=== PATIENT | female | born 1995 | race Caucasian/White ===

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

== ENCOUNTER → 2017-02-05 | Outpatient (REF) | payer OTHER ==
[~2017-02-05] MED LIST: ALLE180T33 PO; BREO1INH INH; CIPR500T89 PO; CIPR750T2 PO; DESM0.2T; FLAG500T PO; PROZ20CA11; PYRI200T5 PO; SING10TA32 PO; VITA2000; ZOFR4TAB3 PO
== END ==
LOC: M LAB REF 16:31
PROVIDERS: ATTEND Physician Assistant
DX: N39.0 Urinary tract infection, site not specified (principal)

== ENCOUNTER → 2017-02-06 | Outpatient (CLI) | payer OTHER ==
--- NOTE | 2017-02-07 08:42 | ECGEPIP ---
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
== END ==
LOC: M EKG 08:03
PROVIDERS: ATTEND Nurse Practitioner Family
DX: R94.31 Abnormal electrocardiogram [ECG] [EKG] (principal)

== ENCOUNTER → 2017-02-06 | Outpatient (CLI) | payer OTHER ==
[2017-02-06 09:04] LABS: BLOOD UREA NITROGEN 15 MG/DL (7-18); CREATININE FOR GFR 0.65 MG/DL (0.55-1.02)
== END ==
LOC: M LAB 07:58
PROVIDERS: ATTEND Physical Medicine & Rehabilitation
DX: M47.26 Other spondylosis with radiculopathy, lumbar region (principal)

== ENCOUNTER → 2017-02-06 | Outpatient (CLI) | payer OTHER ==
[2017-02-06 09:13] LABS: CORTISOL AM 18.1 UG/DL (4.3-22.4)
== END ==
LOC: M LAB 08:01
PROVIDERS: ATTEND Nurse Practitioner Pediatrics
DX: F34.1 Dysthymic disorder (principal)

== ENCOUNTER 2017-02-12 17:54 | Emergency (ER) | payer OTHER ==
[~2017-02-12] VITALS: Ht 175.3 cm; Wt 151.8 kg
[2017-02-12] MEDS ORDERED: BREO1INH INH (18:06)
[2017-02-12] MEDS ORDERED: SING10TA32 PO (18:06)
[2017-02-12] MEDS ORDERED: PROZ20CA11 PO (18:06)
[2017-02-12] MEDS ORDERED: DESM0.2T (18:06)
[2017-02-12] MEDS ORDERED: ALLE180T33 PO (18:06)
[2017-02-12] MEDS ORDERED: CIPR750T2 PO (18:06)
[2017-02-12] MEDS ORDERED: VITA2000 (18:06)
[2017-02-12] MEDS ORDERED: ACETAMINOPHEN 325 MG TAB PO ONE (18:30)
[2017-02-12] MEDS ORDERED: PHENAZOPYRIDINE 100 MG TAB PO ONE (18:30)
[2017-02-12 18:46] LABS: BASO # 0.1 K/mm3 (0.0-0.2); BASO % 0.5 % (0.0-1.0); EOS # 0.4 K/mm3 (0.0-0.50); EOS % 3.4 % (0.0-3.0); LARGE UNSTAINED CELL # 0.1 K/mm3 (0.0-0.4); LARGE UNSTAINED CELL % 0.7 % (0.0-4.0); LYMPH # 2.3 K/mm3 (1.5-6.5); LYMPH % 17.1 % (24.0-44.0); MEAN CORPUSCULAR HEMOGLOBIN 27.6 pg (27.0-33.0); MEAN CORPUSCULAR HGB CONC 33.3 g/dl (32.0-36.5); MEAN CORPUSCULAR VOLUME 83.1 fl (80.0-96.0); MONO # 0.4 K/mm3 (0.0-0.8); NEUTROPHILS # 9.7 K/mm3 (1.8-7.7); NEUTROPHILS % 75.3 % (36.0-66.0); PLATELET COUNT, AUTOMATED 287 k/mm3 (150-450); RED CELL DISTRIBUTION WIDTH 13.9 % (11.5-14.5); WHITE BLOOD COUNT 12.9 K/mm3 (4.0-10.0)
[2017-02-12 19:14] LABS: ALBUMIN 3.7 GM/DL (3.2-5.2); ALBUMIN/GLOBULIN RATIO 0.95 (1.00-1.93); ALKALINE PHOSPHATASE 103 U/L (45-117); ALT/SGPT 29 U/L (12-78); ANION GAP 6 MEQ/L (8-16); AST/SGOT 14 U/L (15-37); BILIRUBIN,DIRECT < 0.1 MG/DL (0.0-0.2); BILIRUBIN,TOTAL 0.3 MG/DL (0.2-1.0); BLOOD UREA NITROGEN 12 MG/DL (7-18); CARBON DIOXIDE LEVEL 29 MEQ/L (21-32); CHLORIDE LEVEL 104 MEQ/L (98-107); GLUCOSE, FASTING 82 MG/DL (70-105); POTASSIUM SERUM 4.1 MEQ/L (3.5-5.1); SODIUM LEVEL 139 MEQ/L (136-145); TOTAL PROTEIN 7.6 GM/DL (6.4-8.2)
--- NOTE | 2017-02-12 20:00 | REPUSA ---
HISTORY: Abdominal pain. TECHNIQUE: Realtime sonographic images were obtained in multiple projections. FINDINGS: The liver is of uniform echo texture without evidence of mass or defect. There is no intra or extrah epatic biliary ductal dilatation. The common bile duct measures 4.4 mm. Multiple large stones filli ng entire gallbladder with thickened wall. There is no abdominal ascites. The visualized portions of abdominal aorta present no abnormalities. The visualized portions of the pancreas are unremarkable. The spleen is of uniform echo texture and does not appear enlarged. The right kidney measures 9.7 x 3.6 x 4.0 cm. The right kidney is free of hydronephrosis. IMPRESSION: Multiple large stones filling entire gallbladder with thickened gallbladder wall. Chronic cholecysti tis is suspected. Consider follow up with hepatobiliary scan. Thank you for your kind referral of this patient. We appreciate the opportunity to participate in th is patient's care.
[2017-02-12] MEDS ORDERED: PYRI1TAB5 PO (20:54)
[2017-02-12] MEDS ORDERED: CIPR-249 PO (20:54)
[2017-02-12] MEDS ORDERED: FLAG500T PO (20:54)
[2017-02-12] MEDS ORDERED: ZOFR4TAB3 PO (20:54)
[2017-02-12 21:00] VITALS: BP 132/85
[2017-02-12] MEDS ORDERED: metroNIDAZOLE (FLAGYL) 500 MG TAB PO ONE (21:00)
[2017-02-12] MEDS ORDERED: CIPROFLOXACIN 500 MG TAB PO ONE (21:00)
[2017-03-23] MEDS ORDERED: ADDE30CA3 PO (17:49)
[2017-03-23] MEDS ORDERED: CAPS0.1C2 TOP (17:49)
[2017-03-23] MEDS ORDERED: CLOTCRE3 TOP (17:49)
[2017-03-23] MEDS ORDERED: ASCO25TA PO (17:49)
[2017-03-23] MEDS ORDERED: MELO15TA4 PO (17:49)
[2017-03-23] MEDS ORDERED: ALBU17IN INH (17:49)
== END 2017-02-12 21:02 | disposition home or self-care (01) ==
LOC: M ED 18:48
DX: K80.44 Calculus of bile duct with chronic cholecystitis without obstruction (principal)

== ENCOUNTER → 2017-03-02 | Outpatient (CLI) | payer OTHER ==
[~2017-03-02] MED LIST changes: +ADDE30CA3 PO; +ALBU17IN INH; +ASCO25TA PO; +CAPS0.1C2 TOP; +CIPR-249 PO; -CIPR500T89 PO; +CLOTCRE3 TOP; +KEFL500C17 PO; +MELO15TA4 PO; -PROZ20CA11; +PROZ20CA11 PO; +PYRI1TAB5 PO; -PYRI200T5 PO
--- NOTE | 2017-03-02 18:35 | REP ---
MRI LUMBAR SPINE WITHOUT AND WITH CONTRAST: HISTORY: Spondylosis. CONTRAST: ProHance 20 mL. COMPARISON: 12/15/2016 There is no disc bulge or herniation at the L1-2 and L5-S1 levels. The nerves exit the neural foramina without compression. A diffuse disc bulge is present at the L2-3 level. There is minimal compression of the thecal sac. The L2 nerves exit the neural foramina without compression. A diffuse disc bulge is present at the L3-4 level. There is minimal compression of the thecal sac. The L3 nerves exit the neural foramina without compression. A diffuse disc bulge is present at the L4-5 level. There is minimal compression of the thecal sac. The L4 nerves exit the neural foramina without compression. The conus medullaris is normal in appearance terminating at the level of the L1-2 intervertebral disc . There is fatty infiltration of the filum terminale. Normal signal intensity is present in the lumbar intervertebral discs and vertebral bodies. IMPRESSION: 1. Diffuse disc bulges at the L2-3 through L4-5 levels with minimal thecal sac compression. 2. Fatty infiltration of filum terminale. There is no change compared to the previous study. Signed by Sukhi Ruvalcaba MD 03/02/2017 06:40 P
--- NOTE | 2017-03-02 18:38 | REP ---
MRI THORACIC SPINE WITHOUT AND WITH CONTRAST: HISTORY: Spondylosis. CONTRAST: ProHance 20 mL COMPARISON: 10/10/2016 There is no disc bulge or herniation. There is an increase in the amount of epidural fat. This extends from the T4 level inferior to T9. There is minimal effacement of the thecal sac without spinal cord compression. Facet hypertrophy is present at the T10-11 level. There is minimal effacement of the thecal sac without spinal cord compression. The T10 and remaining neural foramina are patent. The spinal cord is normal in signal intensity. Normal signal intensity is present in the thoracic vertebral bodies. IMPRESSION: 1. There is no disc bulge or herniation. 2. There is epidural lipomatosis. There is no change compared to the previous study. Signed by Sukhi Ruvalcaba MD 03/02/2017 06:41 P
== END ==
LOC: M RAD 15:15
PROVIDERS: ATTEND Physical Medicine & Rehabilitation
DX: M54.6 Pain in thoracic spine (principal)

== ENCOUNTER 2017-03-30 10:02 | Day surgery (SDC) | payer OTHER ==
[~2017-03-30] VITALS: Ht 175.3 cm; Wt 150.6 kg
[~2017-03-30 10:02] MED LIST changes: -KEFL500C17 PO
[2017-03-30] MEDS ORDERED: LR 1,000 ML IV ONE (10:15)
[2017-03-30 10:32] LABS: CONTROL LINE UCG INT CTR LINE PRESENT
[2017-03-30] MEDS ORDERED: fentaNYL 250 MCG/5 ML INJECTION (J3010) As Ordered ONE (11:16)
[2017-03-30] MEDS ORDERED: LIDOCAINE 2% INJ 100 MG/5 ML SDV (FOR ANES.) As Ordered ONE (11:16)
[2017-03-30] MEDS ORDERED: PROPOFOL 200 MG/20 ML VIAL As Ordered ONE ×2 (11:16→12:20)
[2017-03-30] MEDS ORDERED: ROCURONIUM BROMIDE 50 MG/5 ML VIAL/SYRINGE As Ordered ONE ×2 (11:16→12:20)
[2017-03-30] MEDS ORDERED: KETOROLAC 60 MG/2 ML VIAL (J1885) As Ordered ONE (11:16)
[2017-03-30] MEDS ORDERED: ONDANSETRON 4MG/2ML VIAL (J2405) As Ordered ONE (11:16)
[2017-03-30] MEDS ORDERED: MIDAZOLAM INJ 2 MG/2 ML VIAL (J2250) As Ordered ONE (11:16)
[2017-03-30] MEDS ORDERED: dexameTHASONE 4 MG/ML 1ML VIAL (J1100) As Ordered ONE (11:16)
[2017-03-30] MEDS ORDERED: BUPIVACAINE/EPIN 0.25% 30 ML VIAL As Ordered ONE (11:24)
[2017-03-30] MEDS ORDERED: NEOSTIGMINE 1MG/ML 5 ML SYRINGE (J2710) As Ordered ONE ×2 (12:49→13:33)
[2017-03-30] MEDS ORDERED: GLYCOPYRROLATE INJ 0.2 MG/ML 2 ML VIAL As Ordered ONE (12:49)
[2017-03-30] MEDS ORDERED: fentaNYL 100 MCG/2 ML INJECTION (J3010) IV PRN (13:30)
[2017-03-30] MEDS ORDERED: LR 1,000 ML IV SCH (13:30)
[2017-03-30] MEDS ORDERED: ONDANSETRON 4MG/2ML VIAL (J2405) IV PRN (13:30)
[2017-03-30] MEDS ORDERED: PERCOCET 5MG/325MG TAB PO PRN (13:30)
[2017-03-30] MEDS ORDERED: METOCLOPRAMIDE INJ 10MG/2ML VIAL (J2765) IV PRN (13:30)
[2017-03-30] MEDS ORDERED: NORCO, ANEXSIA 5/325MG TABLET (HYDROcodone/ACETAMINOPHEN) PO PRN (13:30)
[2017-03-30] MEDS: MORPHINE 2 MG/ML 1ML SYRINGE IV PRN ×2 (13:46→13:52)
[2017-03-30 16:05] VITALS: BP 122/60
--- NOTE | 2017-03-31 08:14 | RO ---
DATE OF PROCEDURE: 03/30/2017 PREOPERATIVE DIAGNOSIS: Symptomatic cholelithiasis. POSTOPERATIVE DIAGNOSIS: Symptomatic cholelithiasis. PROCEDURE: Laparoscopic cholecystectomy. SURGEON: Dr. Bennie Rose. DISPLAY DESIGNER OUTSIDE: Mery Thomas. ANESTHESIA: General. ESTIMATED BLOOD LOSS: 5. COMPLICATIONS: None. INDICATION FOR PROCEDURE: The patient is a 21-year-old female who presents with persistent right upper quadrant abdominal pain found to have symptomatic cholelithiasis. Recommendations to proceed with laparoscopic, possible open cholecystectomy. Risks and benefits of procedure not limited but including bleeding, infection, hernia formation, damage to surrounding structures, need for further surgery were discussed in detail with the patient. Informed consent was obtained and procedure was planned. PROCEDURE: The patient was brought back to operating room two. After sufficient sedation, the abdomen was sterilely prepped and draped. Next time out was done to confirm proper patient and proper procedure. Following that, an incision made in left upper quadrant at Hugo's point. Veress needle was inserted and the abdomen was insufflated to 15 mmHg. Next a 5 mm OptiView port was used to gain access to the abdomen superior to the umbilicus. Once the abdomen was entered, a Veress needle site was examined. There were no signs of injury. Veress needle was removed. Next the 11 mm port was placed subxiphoid, two 5 mm ports in the right upper quadrant. Fundus of the gallbladder was hiding underneath some scarred omentum. This was carefully dissected free from the liver bed and from the fundus of the gallbladder. Once the fundus of the gallbladder was reached, the omentum was carefully dissected free all the way through the body of the gallbladder. Once the neck of the gallbladder was reached, the cystic duct and cystic artery were dissected free using a combination of blunt and sharp dissection. Once they were both clearly identified, they were both doubly clamped and cut. The gallbladder was then removed from the gallbladder fossa using electrocautery and brought out through the subxiphoid port site in a 10 mm EndoCatch bag. The abdomen was then desufflated. Skin incisions were closed with #4-0 Vicryl subcuticular sutures. The abdomen was cleaned and dried. Steri-Strips, 4 x 4 and tape were applied thus ending procedure.
== END 2017-03-30 16:20 | disposition home or self-care (01) ==
LOC: M SDC 10:02
PROVIDERS: ATTEND Surgery
DX: K80.10 Calculus of gallbladder with chronic cholecystitis without obstruction (principal); F41.9 Anxiety disorder, unspecified; J45.909 Unspecified asthma, uncomplicated; F32.9 Major depressive disorder, single episode, unspecified; F90.9 Attention-deficit hyperactivity disorder, unspecified type; R29.898 Other symptoms and signs involving the musculoskeletal system; M51.9 Unspecified thoracic, thoracolumbar and lumbosacral intervertebral disc disorder; Z88.2 Allergy status to sulfonamides; Z79.899 Other long term (current) drug therapy

== ENCOUNTER 2017-04-27 13:09 | Emergency (ER) | payer OTHER ==
[~2017-04-27] VITALS: Ht 175.3 cm; Wt 156.1 kg
[2017-04-27] MEDS ORDERED: KEFL500C17 PO (15:38)
[2017-04-27] MEDS ORDERED: CEPHALEXIN 500 MG CAP PO ONE (15:45)
[2017-04-27 15:50] VITALS: BP 123/75
== END 2017-04-27 15:51 | disposition home or self-care (01) ==
LOC: M ED 13:09
DX: T81.31XA Disruption of external operation (surgical) wound, not elsewhere classified, initial encounter (principal)

== ENCOUNTER → 2017-07-31 | Outpatient (CLI) | payer OTHER ==
[~2017-07-31] MED LIST changes: +KEFL500C17 PO
[2017-07-31 19:46] LABS: BASO # 0.1 10^3/uL (0.0-0.2); BASO % 0.5 % (0.0-1.0); EOS # 0.2 10^3/uL (0.0-0.50); EOS % 1.7 % (0.0-3.0); IMMATURE GRANULOCYTE % 0.4 % (0-0); LYMPH # 3.1 10^3/uL (1.5-6.5); LYMPH % 30.5 % (24.0-44.0); MEAN CORPUSCULAR HEMOGLOBIN 26.3 pg (27.0-33.0); MEAN CORPUSCULAR VOLUME 82.3 fl (80.0-96.0); MONO # 0.6 10^3/uL (0.0-0.8); MONO % 5.7 % (0.0-5.0); NEUTROPHILS # 6.2 10^3/uL (1.8-7.7); NEUTROPHILS % 61.2 % (36.0-66.0); PLATELET COUNT, AUTOMATED 343 10^3/uL (150-450); RED CELL DISTRIBUTION WIDTH 14.5 % (11.5-14.5); WHITE BLOOD COUNT 10.1 10^3/uL (4.0-10.0)
[2017-07-31 20:13] LABS: ALBUMIN 3.8 GM/DL (3.2-5.2); ALBUMIN/GLOBULIN RATIO 0.95 (1.00-1.93); ALKALINE PHOSPHATASE 93 U/L (45-117); ALT/SGPT 24 U/L (12-78); ANION GAP 9 MEQ/L (8-16); AST/SGOT 9 U/L (7-37); BILIRUBIN,TOTAL 0.2 MG/DL (0.2-1.0); BLOOD UREA NITROGEN 12 MG/DL (7-18); CALCIUM LEVEL 8.8 MG/DL (8.5-10.1); CARBON DIOXIDE LEVEL 27 MEQ/L (21-32); CHLORIDE LEVEL 107 MEQ/L (98-107); CREATININE FOR GFR 0.63 MG/DL (0.55-1.02); FREE T4 0.93 NG/DL (0.78-1.33); GLUCOSE, FASTING 81 MG/DL (70-105); POTASSIUM SERUM 3.9 MEQ/L (3.5-5.1); SODIUM LEVEL 143 MEQ/L (136-145); TOTAL PROTEIN 7.8 GM/DL (6.4-8.2)
== END ==
LOC: M WUC 17:10
PROVIDERS: ATTEND Physician Assistant
DX: R30.0 Dysuria (principal)

== ENCOUNTER → 2017-07-31 | Outpatient (REF) | payer OTHER | LOC: M LAB REF 19:15 | PROVIDERS: ATTEND Physician Assistant | DX: R30.0 Dysuria (principal) ==

== ENCOUNTER 2017-08-04 14:57 | Emergency (ER) | payer OTHER ==
[~2017-08-04] VITALS: Ht 175.3 cm; Wt 150.0 kg
[2017-08-04 17:02] LABS: CONTROL LINE UCG INT CTR LINE PRESENT
[2017-08-04] MEDS ORDERED: CIPROFLOXACIN 500 MG TAB PO ONE (17:15)
[2017-08-04] MEDS ORDERED: CIPR-249 PO (17:16)
[2017-08-04 17:39] VITALS: BP 113/69
== END 2017-08-04 17:41 | disposition home or self-care (01) ==
LOC: M ED 14:57
DX: N30.90 Cystitis, unspecified without hematuria (principal); J45.909 Unspecified asthma, uncomplicated; F41.9 Anxiety disorder, unspecified; Z79.899 Other long term (current) drug therapy; Z79.51 Long term (current) use of inhaled steroids; Z88.1 Allergy status to other antibiotic agents; Z88.2 Allergy status to sulfonamides; L23.1 Allergic contact dermatitis due to adhesives

== ENCOUNTER → 2017-08-10 | Outpatient (REF) | payer OTHER, MEDICAID ==
[2017-08-11 13:58] LABS: CALCIUM OXALATE CRYSTALS LARGE
== END ==
LOC: M LAB REF 13:32
PROVIDERS: ATTEND Nurse Practitioner Adult Health
DX: N39.0 Urinary tract infection, site not specified (principal)

== ENCOUNTER → 2017-09-08 | Outpatient (CLI) | payer OTHER ==
[~2017-09-08] MED LIST changes: -ADDE30CA3 PO; -ALBU17IN INH; -ALLE180T33 PO; -ASCO25TA PO; -BREO1INH INH; -CAPS0.1C2 TOP; -CIPR-249 PO; -CIPR750T2 PO; -CLOTCRE3 TOP; -DESM0.2T; -FLAG500T PO; +ISOVUE-370 76% 100ML VIAL (Q9967) As Ordered; -KEFL500C17 PO; -MELO15TA4 PO; -PROZ20CA11 PO; -PYRI1TAB5 PO; -SING10TA32 PO; -VITA2000; -ZOFR4TAB3 PO
== END ==
LOC: M RAD 16:46
DX: R31.29 Other microscopic hematuria (principal); R10.31 Right lower quadrant pain
CPT/HCPCS: Q9967

== ENCOUNTER → 2017-09-09 | Outpatient (CLI) | payer OTHER ==
[2017-09-09 18:00] LABS: APPEARANCE, URINE HAZY (CLEAR); BACTERIA, URINE AUTO NEGATIVE (NEGATIVE); BILIRUBIN, URINE AUTO NEGATIVE (NEGATIVE); BLOOD, URINE BLOOD NEGATIVE (NEGATIVE); COLOR, URINE YELLOW (YELLOW); GLUCOSE, URINE (UA) AUTO NEGATIVE (NEGATIVE); KETONE, URINE AUTO NEGATIVE (NEGATIVE); LEUKOCYTE ESTERASE, URINE AUTO 2+ (NEGATIVE); NITRITE, URINE AUTO NEGATIVE (NEGATIVE); PROTEIN, URINE AUTO NEGATIVE (NEGATIVE); RBC, URINE AUTO 0 /HPF (0-3); SPECIFIC GRAVITY URINE AUTO 1.031 (1.002-1.035); SQUAMOUS EPITHELIAL CELL UR AU 1 /HPF (0-6); UROBILINOGEN, URINE AUTO 0.2 mg/dL (0.0-2.0); WBC, URINE AUTO 5 /HPF (0-3)
== END ==
LOC: M LAB 16:50
DX: R31.29 Other microscopic hematuria (principal)
CPT/HCPCS: 36415

== ENCOUNTER → 2017-09-22 | Outpatient (REF) | payer OTHER ==
[2017-09-22 17:59] LABS: APPEARANCE, URINE HAZY (CLEAR); BACTERIA, URINE AUTO NEGATIVE (NEGATIVE); BILIRUBIN, URINE AUTO NEGATIVE (NEGATIVE); BLOOD, URINE BLOOD NEGATIVE (NEGATIVE); COLOR, URINE YELLOW (YELLOW); GLUCOSE, URINE (UA) AUTO NEGATIVE (NEGATIVE); KETONE, URINE AUTO NEGATIVE (NEGATIVE); LEUKOCYTE ESTERASE, URINE AUTO 1+ (NEGATIVE); NITRITE, URINE AUTO NEGATIVE (NEGATIVE); PROTEIN, URINE AUTO NEGATIVE (NEGATIVE); RBC, URINE AUTO 2 /HPF (0-3); SPECIFIC GRAVITY URINE AUTO 1.024 (1.002-1.035); SQUAMOUS EPITHELIAL CELL UR AU 2 /HPF (0-6); UROBILINOGEN, URINE AUTO 0.2 mg/dL (0.0-2.0); WBC, URINE AUTO 21 /HPF (0-3)
== END ==
LOC: M SMT 17:10
DX: R35.0 Frequency of micturition (principal)

== ENCOUNTER → 2017-10-10 | Outpatient (CLI) | payer OTHER ==
[2017-10-10 15:38] LABS: BASO % 0.5 % (0.0-1.0); EOS # 0.2 10^3/uL (0.0-0.50); EOS % 2.2 % (0.0-3.0); HEMATOCRIT 41.3 % (36.0-47.0); IMMATURE GRANULOCYTE % 0.5 % (0-3.0); LYMPH % 23.1 % (24.0-44.0); MEAN CORPUSCULAR HEMOGLOBIN 26.2 pg (27.0-33.0); MEAN CORPUSCULAR HGB CONC 31.5 g/dl (32.0-36.5); MEAN CORPUSCULAR VOLUME 83.1 fl (80.0-96.0); MONO # 0.4 10^3/uL (0.0-0.8); MONO % 4.9 % (0.0-5.0); NEUTROPHILS % 68.8 % (36.0-66.0); PLATELET COUNT, AUTOMATED 281 10^3/uL (150-450); RED BLOOD COUNT 4.97 10^6/uL (4.00-5.40); RED CELL DISTRIBUTION WIDTH 14.8 % (11.5-14.5); WHITE BLOOD COUNT 8.8 10^3/uL (4.0-10.0)
[2017-10-10 15:51] LABS: ESTIMATED AVERAGE GLUCOSE 94 MG/DL (60-110); HEMOGLOBIN A1c 4.9 %
[2017-10-10 16:11] LABS: ALBUMIN 3.4 GM/DL (3.2-5.2); ALBUMIN/GLOBULIN RATIO 0.92 (1.00-1.93); ALKALINE PHOSPHATASE 94 U/L (45-117); ALT/SGPT 22 U/L (12-78); ANION GAP 7 MEQ/L (8-16); AST/SGOT 13 U/L (7-37); BILIRUBIN,TOTAL 0.3 MG/DL (0.2-1.0); BLOOD UREA NITROGEN 11 MG/DL (7-18); C REACTIVE PROTEIN QUANTITATIV 2.39 MG/DL (0.00-0.30); CALCIUM LEVEL 8.6 MG/DL (8.5-10.1); CARBON DIOXIDE LEVEL 30 MEQ/L (21-32); CHLORIDE LEVEL 105 MEQ/L (98-107); CREATININE FOR GFR 0.51 MG/DL (0.55-1.30); FREE T3 3.1 PG/ML (2.9-4.5); FREE T4 1.02 NG/DL (0.78-1.33); GLUCOSE, FASTING 76 MG/DL (70-100); POTASSIUM SERUM 4.4 MEQ/L (3.5-5.1); SODIUM LEVEL 142 MEQ/L (136-145); TOTAL PROTEIN 7.1 GM/DL (6.4-8.2)
[2017-10-12 11:52] LABS: TOTAL 25(OH) VITAMIN D 19.4 NG/ML (30.0-100.0)
[2017-10-12 11:58] LABS: THYROGLOBULIN ANTIBODY 357.8 U/ML (<60.0)
[2017-10-15 10:14] LABS: T3 REVERSE 22.5 ng/dL (9.2-24.1)
== END ==
LOC: M WUC 14:31
DX: F34.1 Dysthymic disorder (principal); F90.0 Attention-deficit hyperactivity disorder, predominantly inattentive type; K58.0 Irritable bowel syndrome with diarrhea; E55.9 Vitamin D deficiency, unspecified
CPT/HCPCS: 84443

== ENCOUNTER → 2017-10-10 | Outpatient (CLI) | payer OTHER ==
[2017-10-10 15:59] LABS: ERYTHROCYTE SEDIMENTATION RATE 28 mm/hr (0-20)
[2017-10-10 16:01] LABS: RHEUMATOID FACTOR QUANT < 10.0 IU/ML (0-15.0)
[2017-10-12 10:59] LABS: TOTAL 25(OH) VITAMIN D 24.6 NG/ML (30.0-100.0)
[2017-10-12 11:00] LABS: VITAMIN B12 LEVEL 310 PG/ML (247-911)
[2017-10-12 11:09] LABS: FOLATE 15.7 NG/ML (>5.4)
[2017-10-14 00:07] LABS: Lyme Disease IgG/IgM Antibodie <0.91 ISR (0.00-0.90); Lyme Disease IgM Ab Quantitati <0.80 index (0.00-0.79)
[2017-10-15 10:14] LABS: ANTI DOUBLE STRAND-DNA AB 1 IU/mL (0-9); ANTINUCLEAR ANTIBODIES DIRECT Negative (Negative); CERULOPLASMIN 34.3 mg/dL (19.0-39.0); COPPER PLASMA 161 ug/dL (72-166); SJOGREN'S ANTI SS-A <0.2 AI (0.0-0.9); SJOGREN'S ANTI SS-B <0.2 AI (0.0-0.9)
== END ==
LOC: M WUC 14:36
DX: G35 Multiple sclerosis (principal); E55.9 Vitamin D deficiency, unspecified; F34.1 Dysthymic disorder; F90.0 Attention-deficit hyperactivity disorder, predominantly inattentive type; K58.0 Irritable bowel syndrome with diarrhea
CPT/HCPCS: 82525

== ENCOUNTER → 2017-10-13 | Outpatient (REF) | payer OTHER ==
[2017-10-13 20:26] LABS: APPEARANCE, URINE HAZY (CLEAR); BACTERIA, URINE AUTO NEGATIVE (NEGATIVE); BILIRUBIN, URINE AUTO NEGATIVE (NEGATIVE); BLOOD, URINE BLOOD 3+ (NEGATIVE); COLOR, URINE YELLOW (YELLOW); GLUCOSE, URINE (UA) AUTO NEGATIVE (NEGATIVE); KETONE, URINE AUTO NEGATIVE (NEGATIVE); LEUKOCYTE ESTERASE, URINE AUTO 1+ (NEGATIVE); MUCUS, URINE SMALL (NEGATIVE); NITRITE, URINE AUTO NEGATIVE (NEGATIVE); PROTEIN, URINE AUTO NEGATIVE (NEGATIVE); RBC, URINE AUTO TNTC /HPF (0-3); SPECIFIC GRAVITY URINE AUTO 1.025 (1.002-1.035); SQUAMOUS EPITHELIAL CELL UR AU 1 /HPF (0-6); UROBILINOGEN, URINE AUTO 0.2 mg/dL (0.0-2.0); WBC, URINE AUTO 15 /HPF (0-3)
== END ==
LOC: M LAB REF 16:52
DX: N20.0 Calculus of kidney (principal)

== ENCOUNTER → 2017-10-23 | Outpatient (CLI) | payer OTHER ==
[2017-10-23 08:52] LABS: TESTOSTERONE 47 NG/DL (14-76)
[2017-10-23 08:52] LABS: PROGESTERONE 0.8 NG/ML
[2017-10-23 09:56] LABS: LUTEINIZING HORMONE 19.3 mIU/mL
[2017-10-23 10:10] LABS: APPEARANCE, URINE HAZY (CLEAR); BACTERIA, URINE AUTO 1+ (NEGATIVE); BILIRUBIN, URINE AUTO NEGATIVE (NEGATIVE); BLOOD, URINE BLOOD NEGATIVE (NEGATIVE); COLOR, URINE YELLOW (YELLOW); GLUCOSE, URINE (UA) AUTO NEGATIVE (NEGATIVE); KETONE, URINE AUTO TRACE mg/dL (NEGATIVE); LEUKOCYTE ESTERASE, URINE AUTO 3+ (NEGATIVE); MUCUS, URINE SMALL (NEGATIVE); NITRITE, URINE AUTO NEGATIVE (NEGATIVE); PROTEIN, URINE AUTO NEGATIVE (NEGATIVE); RBC, URINE AUTO 2 /HPF (0-3); SPECIFIC GRAVITY URINE AUTO 1.031 (1.002-1.035); SQUAMOUS EPITHELIAL CELL UR AU 5 /HPF (0-6); WBC, URINE AUTO 10 /HPF (0-3)
[2017-10-23 11:08] LABS: CORTISOL AM 2.8 UG/DL (4.3-22.4)
[2017-10-26 14:11] LABS: ESTROGENS TOTAL 159 pg/mL (.)
[2017-10-26 14:11] LABS: TISSUE TRANSGLUTAMINASE IgA <2 U/mL (0-3)
== END ==
LOC: M LAB 07:28
DX: N20.0 Calculus of kidney (principal)
CPT/HCPCS: 83001

== ENCOUNTER → 2017-10-23 | Outpatient (CLI) | payer OTHER | LOC: M PLARAD 08:10 | DX: G35 Multiple sclerosis (principal); R20.0 Anesthesia of skin; N39.42 Incontinence without sensory awareness | CPT/HCPCS: 70553 ==

== ENCOUNTER 2018-03-25 19:39 | Emergency (ER) | payer OTHER ==
[2018-03-25 21:19] LABS: KETONE, URINE AUTO RFX NEGATIVE (NEGATIVE); MUCUS, URINE RFX SMALL (NEGATIVE); NITRITE, URINE AUTO RFX NEGATIVE (NEGATIVE); RBC, URINE AUTO RFX 2 /HPF (0-3); SPECIFIC GRAVITY UR AUTO RFX 1.025 (1.002-1.035); SQUAM EPITHELIAL CELL UR AURFX 5 /HPF (0-6); WBC, URINE AUTO RFX 6 /HPF (0-3)
[2018-03-25 21:21] LABS: LEUKOCYTE ESTERASE UR AUTO RFX TRACE (NEGATIVE)
[2018-03-25] MEDS ORDERED: MORPHINE 4 MG/ML 1ML VIAL/SYRINGE (J2270) IV (21:45)
[2018-03-25 22:16] LABS: BASO % 0.2 % (0.0-1.0); EOS # 0.1 10^3/uL (0.0-0.50); EOS % 0.9 % (0.0-3.0); HEMATOCRIT 44.3 % (36.0-47.0); HEMOGLOBIN 13.9 g/dl (12.0-15.5); IMMATURE GRANULOCYTE % 0.5 % (0-3.0); LYMPH # 2.3 10^3/uL (1.5-6.5); LYMPH % 18.1 % (24.0-44.0); MEAN CORPUSCULAR HEMOGLOBIN 26.2 pg (27.0-33.0); MEAN CORPUSCULAR HGB CONC 31.4 g/dl (32.0-36.5); MEAN CORPUSCULAR VOLUME 83.4 fl (80.0-96.0); MONO # 0.8 10^3/uL (0.0-0.8); MONO % 6.2 % (0.0-5.0); NEUTROPHILS # 9.5 10^3/uL (1.8-7.7); NEUTROPHILS % 74.1 % (36.0-66.0); PLATELET COUNT, AUTOMATED 304 10^3/uL (150-450); RED BLOOD COUNT 5.31 10^6/uL (4.00-5.40); RED CELL DISTRIBUTION WIDTH 16.5 % (11.5-14.5); WHITE BLOOD COUNT 12.9 10^3/uL (4.0-10.0)
[2018-03-25 22:30] LABS: ALBUMIN 3.5 GM/DL (3.2-5.2); ALKALINE PHOSPHATASE 90 U/L (45-117); ALT/SGPT 35 U/L (12-78); ANION GAP 6 MEQ/L (8-16); AST/SGOT 21 U/L (7-37); BILIRUBIN,DIRECT < 0.1 MG/DL (0.0-0.2); BILIRUBIN,TOTAL 0.4 MG/DL (0.2-1.0); BLOOD UREA NITROGEN 8 MG/DL (7-18); CALCIUM LEVEL 8.6 MG/DL (8.5-10.1); CARBON DIOXIDE LEVEL 30 MEQ/L (21-32); CHLORIDE LEVEL 106 MEQ/L (98-107); CREATININE FOR GFR 0.58 MG/DL (0.55-1.30); GLUCOSE, FASTING 88 MG/DL (70-100); LIPASE 99 U/L (73-393); POTASSIUM SERUM 4.5 MEQ/L (3.5-5.1); SODIUM LEVEL 142 MEQ/L (136-145); TOTAL PROTEIN 7.4 GM/DL (6.4-8.2)
[2018-03-25] MEDS ORDERED: ISOVUE-370 76% 100ML VIAL (Q9967) As Ordered (22:46)
== END 2018-03-26 01:04 | disposition home or self-care (01) ==
LOC: M ED 03-26 01:04
DX: N83.292 Other ovarian cyst, left side (principal); J45.909 Unspecified asthma, uncomplicated; F41.9 Anxiety disorder, unspecified; F32.9 Major depressive disorder, single episode, unspecified; E28.2 Polycystic ovarian syndrome; Z87.442 Personal history of urinary calculi; Z79.899 Other long term (current) drug therapy; Z88.2 Allergy status to sulfonamides; Z91.89 Other specified personal risk factors, not elsewhere classified
CPT/HCPCS: Q9967

== ENCOUNTER → 2018-05-26 | Outpatient (CLI) | payer OTHER ==
[2018-05-26 18:31] LABS: CREATININE FOR GFR 0.53 MG/DL (0.55-1.30)
[2018-05-26 18:31] LABS: BLOOD UREA NITROGEN 8 MG/DL (7-18)
== END ==
LOC: M LAB 16:58
DX: M54.6 Pain in thoracic spine (principal)
CPT/HCPCS: 82565

== ENCOUNTER → 2018-05-27 | Outpatient (CLI) | payer OTHER | LOC: M SMT 13:38 | DX: N83.292 Other ovarian cyst, left side (principal) | CPT/HCPCS: 76856 ==

== ENCOUNTER → 2018-07-02 | Outpatient (CLI) | payer OTHER ==
[2018-07-02 17:50] LABS: BASO % 0.3 % (0.0-1.0); EOS # 0.2 10^3/uL (0.0-0.50); EOS % 2.7 % (0.0-3.0); HEMATOCRIT 42.2 % (36.0-47.0); HEMOGLOBIN 13.1 g/dl (12.0-15.5); IMMATURE GRANULOCYTE % 0.3 % (0-3.0); LYMPH # 2.6 10^3/uL (1.5-6.5); LYMPH % 29.5 % (24.0-44.0); MEAN CORPUSCULAR HEMOGLOBIN 27.6 pg (27.0-33.0); MEAN CORPUSCULAR VOLUME 88.8 fl (80.0-96.0); MONO # 0.5 10^3/uL (0.0-0.8); NEUTROPHILS # 5.5 10^3/uL (1.8-7.7); NEUTROPHILS % 61.2 % (36.0-66.0); PLATELET COUNT, AUTOMATED 344 10^3/uL (150-450); RED BLOOD COUNT 4.75 10^6/uL (4.00-5.40); RED CELL DISTRIBUTION WIDTH 14.6 % (11.5-14.5); WHITE BLOOD COUNT 8.9 10^3/uL (4.0-10.0)
[2018-07-02 17:52] LABS: URIC ACID 5.3 MG/DL (2.6-6.0)
[2018-07-02 17:52] LABS: C REACTIVE PROTEIN QUANTITATIV 1.55 MG/DL (0.00-0.30); RHEUMATOID FACTOR QUANT < 10.0 IU/ML (<15.0)
[2018-07-02 18:51] LABS: ERYTHROCYTE SEDIMENTATION RATE 26 mm/hr (0-20)
[2018-07-08 00:07] LABS: ANTINUCLEAR ANTIBODIES DIRECT Negative (Negative); HLA-B27 Negative (.); Lyme Disease IgG/IgM Antibodie <0.91 ISR (0.00-0.90); Lyme Disease IgM Ab Quantitati <0.80 index (0.00-0.79)
== END ==
LOC: M LAB 16:57
DX: M25.531 Pain in right wrist (principal)
CPT/HCPCS: 84550

== ENCOUNTER → 2018-07-02 | Outpatient (CLI) | payer OTHER ==
[2018-07-02 17:59] LABS: ALBUMIN 3.8 GM/DL (3.2-5.2); ALBUMIN/GLOBULIN RATIO 1.09 (1.00-1.93); ALKALINE PHOSPHATASE 98 U/L (45-117); ALT/SGPT 39 U/L (12-78); ANION GAP 4 MEQ/L (8-16); AST/SGOT 17 U/L (7-37); BILIRUBIN,TOTAL 0.2 MG/DL (0.2-1.0); BLOOD UREA NITROGEN 9 MG/DL (7-18); CALCIUM LEVEL 9.1 MG/DL (8.5-10.1); CARBON DIOXIDE LEVEL 30 MEQ/L (21-32); CHLORIDE LEVEL 104 MEQ/L (98-107); CREATININE FOR GFR 0.57 MG/DL (0.55-1.30); GLUCOSE, FASTING 85 MG/DL (70-100); POTASSIUM SERUM 4.9 MEQ/L (3.5-5.1); SODIUM LEVEL 138 MEQ/L (136-145); TOTAL PROTEIN 7.3 GM/DL (6.4-8.2)
[2018-07-02 18:01] LABS: TOTAL 25(OH) VITAMIN D 22.5 NG/ML (30.0-100.0); VITAMIN B12 LEVEL 299 PG/ML (247-911)
== END ==
LOC: M LAB 16:53
DX: E55.9 Vitamin D deficiency, unspecified (principal)
CPT/HCPCS: 82607

== ENCOUNTER → 2018-07-02 | Outpatient (CLI) | payer OTHER ==
[2018-07-02 18:02] LABS: FOLATE 12.1 NG/ML (>5.4); TOTAL 25(OH) VITAMIN D 24.5 NG/ML (30.0-100.0)
[2018-07-02 18:02] LABS: VITAMIN B12 LEVEL 314 PG/ML (247-911)
== END ==
LOC: M LAB 17:01
DX: E55.9 Vitamin D deficiency, unspecified (principal); D51.0 Vitamin B12 deficiency anemia due to intrinsic factor deficiency
CPT/HCPCS: 82746

== ENCOUNTER → 2018-07-07 | Outpatient (REF) | payer OTHER ==
[2018-07-07 17:24] LABS: AMORPHOUS SEDIMENT MODERATE (NEGATIVE); APPEARANCE, URINE TURBID (CLEAR); BACTERIA, URINE AUTO NEGATIVE (NEGATIVE); BILIRUBIN, URINE AUTO NEGATIVE (NEGATIVE); BLOOD, URINE BLOOD NEGATIVE (NEGATIVE); COLOR, URINE YELLOW (YELLOW); GLUCOSE, URINE (UA) AUTO NEGATIVE (NEGATIVE); KETONE, URINE AUTO NEGATIVE (NEGATIVE); LEUKOCYTE ESTERASE, URINE AUTO NEGATIVE (NEGATIVE); MUCUS, URINE SMALL (NEGATIVE); NITRITE, URINE AUTO NEGATIVE (NEGATIVE); PROTEIN, URINE AUTO NEGATIVE (NEGATIVE); RBC, URINE AUTO 0 /HPF (0-3); SPECIFIC GRAVITY URINE AUTO 1.029 (1.002-1.035); SQUAMOUS EPITHELIAL CELL UR AU 0 /HPF (0-6); UROBILINOGEN, URINE AUTO 0.2 mg/dL (0.0-2.0); WBC, URINE AUTO 0 /HPF (0-3)
== END ==
LOC: M SMT 17:01
DX: R10.9 Unspecified abdominal pain (principal)

== ENCOUNTER → 2018-07-21 | Outpatient (CLI) | payer OTHER | LOC: M RAD 14:12 | DX: R10.9 Unspecified abdominal pain (principal); R39.15 Urgency of urination; R39.14 Feeling of incomplete bladder emptying | CPT/HCPCS: 76775 ==

== ENCOUNTER → 2018-10-12 | Outpatient (REF) | payer OTHER ==
[~2018-10-12] MED LIST changes: +ADDE30CA3 PO; +ALBU17IN INH; +ALLE180T33 PO; +ASCO25TA PO; +BREO1INH INH; +CAPS0.1C2 TOP; +CIPR-249 PO; +CIPR750T2 PO; +CLOTCRE3 TOP; +DESM0.2T10; +FLAG500T PO; +FLUTISP; +GABA-843; -ISOVUE-370 76% 100ML VIAL (Q9967) As Ordered; +KEFL500C17 PO; +LISI10TA4; +MELO15TA28 PO; +METF500T13 PO; +PROZ20CA11 PO; +PYRI1TAB5 PO; +SING10TA32 PO; +SPIR-10; +VITA2000; +ZOFR4TAB14 PO
[2018-10-12 19:21] LABS: BASO # 0.1 10^3/uL (0.0-0.2); BASO % 0.5 % (0.0-1.0); EOS # 0.1 10^3/uL (0.0-0.50); EOS % 1.2 % (0.0-3.0); HEMATOCRIT 40.3 % (36.0-47.0); HEMOGLOBIN 12.7 g/dl (12.0-15.5); LYMPH # 2.2 10^3/uL (1.5-6.5); LYMPH % 19.7 % (24.0-44.0); MEAN CORPUSCULAR HEMOGLOBIN 27.1 pg (27.0-33.0); MEAN CORPUSCULAR HGB CONC 31.5 g/dl (32.0-36.5); MEAN CORPUSCULAR VOLUME 85.9 fl (80.0-96.0); MONO # 0.6 10^3/uL (0.0-0.8); NEUTROPHILS # 8.3 10^3/uL (1.8-7.7); NEUTROPHILS % 73.1 % (36.0-66.0); PLATELET COUNT, AUTOMATED 324 10^3/uL (150-450); RED BLOOD COUNT 4.69 10^6/uL (4.00-5.40); WHITE BLOOD COUNT 11.4 10^3/uL (4.0-10.0)
[2018-10-12 19:37] LABS: ALBUMIN 3.5 GM/DL (3.2-5.2); ALT/SGPT 47 U/L (12-78); BILIRUBIN,TOTAL 0.2 MG/DL (0.2-1.0); BLOOD UREA NITROGEN 11 MG/DL (7-18); CALCIUM LEVEL 8.8 MG/DL (8.5-10.1); CARBON DIOXIDE LEVEL 28 MEQ/L (21-32); CHLORIDE LEVEL 107 MEQ/L (98-107); CHOLESTEROL LEVEL 124 MG/DL (<200); CHOLESTEROL RISK RATIO 2.137 (<5); CREATININE FOR GFR 0.49 MG/DL (0.55-1.30); GLUCOSE, FASTING 85 MG/DL (70-100); HDL CHOLESTEROL 58 MG/DL (>40); LDL CHOLESTEROL 36 MG/DL (<100); NON-HDL-C 66 MG/DL; SODIUM LEVEL 141 MEQ/L (136-145); TRIGLYCERIDES LEVEL 149 MG/DL (<150)
[2018-10-13 09:26] LABS: THYROGLOBULIN ANTIBODY 156.4 U/ML (<60.0)
== END ==
LOC: M LAB REF 18:46
PROVIDERS: ATTEND Nurse Practitioner Family
DX: I10 Essential (primary) hypertension (principal); Z13.9 Encounter for screening, unspecified

== ENCOUNTER → 2018-12-17 | Outpatient (CLI) | payer OTHER ==
[~2018-12-17] MED LIST changes: -ASCO25TA PO; +VITA1TAB23 PO
[2018-12-17 20:53] LABS: BASO # 0.1 10^3/uL (0.0-0.2); BASO % 0.4 % (0.0-1.0); EOS # 0.2 10^3/uL (0.0-0.50); EOS % 1.1 % (0.0-3.0); HEMATOCRIT 42.4 % (36.0-47.0); HEMOGLOBIN 13.3 g/dl (12.0-15.5); LYMPH # 2.2 10^3/uL (1.5-6.5); LYMPH % 15.9 % (24.0-44.0); MEAN CORPUSCULAR HEMOGLOBIN 27.1 pg (27.0-33.0); MEAN CORPUSCULAR HGB CONC 31.4 g/dl (32.0-36.5); MEAN CORPUSCULAR VOLUME 86.5 fl (80.0-96.0); MONO # 0.9 10^3/uL (0.0-0.8); MONO % 6.3 % (0.0-5.0); NEUTROPHILS # 10.3 10^3/uL (1.8-7.7); NEUTROPHILS % 75.7 % (36.0-66.0); PLATELET COUNT, AUTOMATED 356 10^3/uL (150-450); WHITE BLOOD COUNT 13.6 10^3/uL (4.0-10.0)
[2018-12-17 21:29] LABS: ALBUMIN 3.7 GM/DL (3.2-5.2); ALT/SGPT 48 U/L (12-78); BILIRUBIN,TOTAL 0.4 MG/DL (0.2-1.0); BLOOD UREA NITROGEN 9 MG/DL (7-18); CALCIUM LEVEL 9.1 MG/DL (8.5-10.1); CARBON DIOXIDE LEVEL 25 MEQ/L (21-32); CHLORIDE LEVEL 105 MEQ/L (98-107); CREATININE FOR GFR 0.64 MG/DL (0.55-1.30); GLOMERULAR FILTRATION RATE > 60.0 (>60); GLUCOSE, FASTING 76 MG/DL (70-100); POTASSIUM SERUM 4.6 MEQ/L (3.5-5.1); SODIUM LEVEL 138 MEQ/L (136-145)
[2018-12-20 14:17] LABS: EBV VIRAL CAPSID AG IgM <36.0 U/mL (0.0-35.9)
== END ==
LOC: M LAB 19:22
PROVIDERS: ATTEND Physician Assistant
DX: J03.90 Acute tonsillitis, unspecified (principal)

== ENCOUNTER → 2019-01-05 | Outpatient (REF) | payer OTHER | LOC: M SFHCPLAZ 11:03 | PROVIDERS: ATTEND Internal Medicine Rheumatology | DX: R70.0 Elevated erythrocyte sedimentation rate (principal); M25.50 Pain in unspecified joint; M79.10 Myalgia, unspecified site; R79.82 Elevated C-reactive protein (CRP); Z53.9 Procedure and treatment not carried out, unspecified reason ==

== ENCOUNTER → 2019-01-12 | Outpatient (REF) | payer OTHER | LOC: M LAB REF 13:34 | PROVIDERS: ATTEND Nurse Practitioner Family | DX: J03.90 Acute tonsillitis, unspecified (principal) ==

== ENCOUNTER → 2019-01-20 | Outpatient (REF) | payer OTHER ==
[2019-01-20 18:39] LABS: APPEARANCE, URINE CLEAR (CLEAR); BACTERIA, URINE AUTO NEGATIVE (NEGATIVE); BILIRUBIN, URINE AUTO NEGATIVE (NEGATIVE); BLOOD, URINE BLOOD NEGATIVE (NEGATIVE); COLOR, URINE YELLOW (YELLOW); GLUCOSE, URINE (UA) AUTO NEGATIVE (NEGATIVE); KETONE, URINE AUTO NEGATIVE (NEGATIVE); LEUKOCYTE ESTERASE, URINE AUTO NEGATIVE (NEGATIVE); NITRITE, URINE AUTO NEGATIVE (NEGATIVE); PROTEIN, URINE AUTO NEGATIVE (NEGATIVE); RBC, URINE AUTO 0 /HPF (0-3); SPECIFIC GRAVITY URINE AUTO 1.018 (1.002-1.035); SQUAMOUS EPITHELIAL CELL UR AU 1 /HPF (0-6); UROBILINOGEN, URINE AUTO 0.2 mg/dL (0.0-2.0); WBC, URINE AUTO 1 /HPF (0-3)
== END ==
LOC: M LAB REF 16:22
PROVIDERS: ATTEND Nurse Practitioner Adult Health
DX: N20.0 Calculus of kidney (principal)

== ENCOUNTER → 2019-01-25 | Outpatient (CLI) | payer OTHER ==
[2019-01-25 17:41] LABS: C REACTIVE PROTEIN QUANTITATIV 1.74 MG/DL (0.00-0.30); CPK CREATINE PHOSPHOKINASE 30 U/L (26-192); IMMUNOGLOBULIN G 1120 MG/DL (681-1648); IMMUNOGLOBULIN M 64.5 MG/DL (40-230); TOTAL PROTEIN 7.2 GM/DL (6.4-8.2)
[2019-01-27 11:36] LABS: ALBUMIN 3.72 GM/DL (3.29-5.55); ALBUMIN % 51.7 % (55.8-66.1); ALPHA-1-GLOBULIN % 5.8 % (2.9-4.9); ALPHA-1-GLOBULINS 0.42 GM/DL (0.17-0.41); ALPHA-2-GLOBULINS 0.95 GM/DL (0.42-0.99); ALPHA-2-GLOBULINS % 13.2 % (7.1-11.8); BETA-1-GLOBULINS 0.53 GM/DL (0.28-0.60); BETA-1-GLOBULINS % 7.3 % (4.7-7.2); BETA-2-GLOBULINS 0.43 GM/DL (0.19-0.55); GAMMA GLOBULINS 1.15 GM/DL (0.65-1.58)
== END ==
LOC: M LAB 16:17
PROVIDERS: ATTEND Nurse Practitioner Family
DX: M79.10 Myalgia, unspecified site (principal); R70.0 Elevated erythrocyte sedimentation rate; M25.50 Pain in unspecified joint; R79.82 Elevated C-reactive protein (CRP)

== ENCOUNTER → 2019-02-11 | Outpatient (CLI) | payer OTHER ==
[2019-02-11 17:41] LABS: BASO % 0.5 % (0.0-1.0); EOS # 0.2 10^3/uL (0.0-0.50); EOS % 1.8 % (0.0-3.0); HEMATOCRIT 41.7 % (36.0-47.0); HEMOGLOBIN 13.3 g/dl (12.0-15.5); LYMPH % 22.8 % (24.0-44.0); MEAN CORPUSCULAR HEMOGLOBIN 27.8 pg (27.0-33.0); MEAN CORPUSCULAR HGB CONC 31.9 g/dl (32.0-36.5); MEAN CORPUSCULAR VOLUME 87.1 fl (80.0-96.0); MONO # 0.5 10^3/uL (0.0-0.8); NEUTROPHILS # 6.1 10^3/uL (1.8-7.7); NEUTROPHILS % 68.2 % (36.0-66.0); PLATELET COUNT, AUTOMATED 311 10^3/uL (150-450); RED BLOOD COUNT 4.79 10^6/uL (4.00-5.40); WHITE BLOOD COUNT 8.9 10^3/uL (4.0-10.0)
[2019-02-11 18:07] LABS: ALBUMIN 3.5 GM/DL (3.2-5.2); ALT/SGPT 34 U/L (12-78); BILIRUBIN,TOTAL 0.4 MG/DL (0.2-1.0); BLOOD UREA NITROGEN 6 MG/DL (7-18); CALCIUM LEVEL 8.7 MG/DL (8.5-10.1); CARBON DIOXIDE LEVEL 26 MEQ/L (21-32); CHLORIDE LEVEL 106 MEQ/L (98-107); CREATININE FOR GFR 0.68 MG/DL (0.55-1.30); GLOMERULAR FILTRATION RATE > 60.0 (>60); GLUCOSE, FASTING 99 MG/DL (70-100); POTASSIUM SERUM 4.2 MEQ/L (3.5-5.1); SODIUM LEVEL 139 MEQ/L (136-145); TOTAL PROTEIN 7.2 GM/DL (6.4-8.2)
== END ==
LOC: M LAB 16:59
PROVIDERS: ATTEND Nurse Practitioner Family
DX: R50.9 Fever, unspecified (principal)

== ENCOUNTER → 2019-03-17 | Outpatient (CLI) | payer OTHER ==
[2019-03-17 14:16] LABS: BLOOD UREA NITROGEN 9 MG/DL (7-18); CALCIUM LEVEL 8.8 MG/DL (8.5-10.1); CARBON DIOXIDE LEVEL 27 MEQ/L (21-32); CHLORIDE LEVEL 109 MEQ/L (98-107); CREATININE FOR GFR 0.62 MG/DL (0.55-1.30); GLOMERULAR FILTRATION RATE > 60.0 (>60); GLUCOSE, FASTING 79 MG/DL (70-100); POTASSIUM SERUM 4.5 MEQ/L (3.5-5.1); SODIUM LEVEL 140 MEQ/L (136-145)
== END ==
LOC: M SMT 09:48
PROVIDERS: ATTEND Specialist
DX: R39.15 Urgency of urination (principal)

== ENCOUNTER 2019-04-04 19:20 | Emergency (ER) | payer OTHER ==
[~2019-04-04] VITALS: Ht 175.3 cm; Wt 163.6 kg
[2019-04-04] MEDS ORDERED: BETA115CR TOP (19:24)
[2019-04-04] MEDS ORDERED: DITR5TAB PO (19:24)
[2019-04-04 19:43] LABS: APPEARANCE, URINE HAZY (CLEAR); BACTERIA, URINE AUTO 1+ (NEGATIVE); BILIRUBIN, URINE AUTO NEGATIVE (NEGATIVE); BLOOD, URINE BLOOD NEGATIVE (NEGATIVE); COLOR, URINE YELLOW (YELLOW); GLUCOSE, URINE (UA) AUTO NEGATIVE (NEGATIVE); KETONE, URINE AUTO NEGATIVE (NEGATIVE); LEUKOCYTE ESTERASE, URINE AUTO TRACE (NEGATIVE); NITRITE, URINE AUTO NEGATIVE (NEGATIVE); PROTEIN, URINE AUTO NEGATIVE (NEGATIVE); RBC, URINE AUTO 2 /HPF (0-3); SPECIFIC GRAVITY URINE AUTO 1.019 (1.002-1.035); SQUAMOUS EPITHELIAL CELL UR AU 3 /HPF (0-6); UROBILINOGEN, URINE AUTO 0.2 mg/dL (0.0-2.0); WBC, URINE AUTO 5 /HPF (0-3)
[2019-04-04 20:03] LABS: HEMATOCRIT 40.8 % (36.0-47.0); HEMOGLOBIN 12.9 g/dl (12.0-15.5); MEAN CORPUSCULAR HEMOGLOBIN 27.3 pg (27.0-33.0); MEAN CORPUSCULAR HGB CONC 31.6 g/dl (32.0-36.5); MEAN CORPUSCULAR VOLUME 86.3 fl (80.0-96.0); PLATELET COUNT, AUTOMATED 289 10^3/uL (150-450); RED BLOOD COUNT 4.73 10^6/uL (4.00-5.40); WHITE BLOOD COUNT 10.7 10^3/uL (4.0-10.0)
[2019-04-04 20:38] LABS: ALBUMIN 3.5 GM/DL (3.2-5.2); ALT/SGPT 30 U/L (12-78); BILIRUBIN,TOTAL 0.2 MG/DL (0.2-1.0); BLOOD UREA NITROGEN 9 MG/DL (7-18); CALCIUM LEVEL 9.1 MG/DL (8.5-10.1); CARBON DIOXIDE LEVEL 28 MEQ/L (21-32); CHLORIDE LEVEL 108 MEQ/L (98-107); CREATININE FOR GFR 0.62 MG/DL (0.55-1.30); GLOMERULAR FILTRATION RATE > 60.0 (>60); GLUCOSE, FASTING 94 MG/DL (70-100); HCG, SERUM QUANTITATIVE < 1.0 MIU/ML; POTASSIUM SERUM 4.2 MEQ/L (3.5-5.1); SODIUM LEVEL 142 MEQ/L (136-145)
--- NOTE | 2019-04-05 01:42 | REPVR ---
EXAM: CT Abdomen and Pelvis Without Contrast EXAM DATE/TIME: 04/05/2019 12:05 AM CLINICAL HISTORY: 23 years old, female; Abdominal pain; Generalized; Additional info: Flank pain, generalized abd pain, HX stones TECHNIQUE: Imaging protocol: Axial computed tomography images of the abdomen and pelvis without contrast. Coronal and sagittal reformatted images were created and reviewed. Radiation optimization: All CT scans at this facility use at least one of these dose optimization techniques: automated exposure control; mA and/or kV adjustment per patient size (includes targeted exams where dose is matched to clinical indication); or iterative reconstruction. COMPARISON: CT ABD/PEL W/IV CONTRAST ONLY 03/25/2018 10:47 PM FINDINGS: Evaluation is limited by quantum mottle artifact secondary to patient body habitus. Liver: No discreet mass. Gallbladder and bile ducts: The gallbladder is surgically absent. Pancreas: No ductal dilation. Spleen: No splenomegaly. Adrenals: No mass. Kidneys and ureters: No hydroureteronephrosis. No discrete, sizable urinary tract calculi identified. Stomach and bowel: No evidence of obstruction. Appendix: No evidence of appendicitis. Intraperitoneal space: No free air. No significant fluid collection. Vasculature: No abdominal aortic aneurysm. Lymph nodes: No enlarged lymph nodes. Bladder: Unremarkable as visualized. Reproductive: Unremarkable as visualized. Bones/joints: No acute fractures or dislocations. Soft tissues: Unremarkable. IMPRESSION: No evidence of hydroureteronephrosis. No discrete, sizable urinary tract calculi identified. Electronically signed by: Matthias Macias On 04/05/2019 01:42:05 AM
[2019-04-05 02:30] VITALS: BP 128/69
[2019-04-05] MEDS ORDERED: diphenhydrAMINE 50 MG CAP PO ONE (02:30)
== END 2019-04-05 02:43 | disposition home or self-care (01) ==
LOC: M ED 19:20
DX: R10.84 Generalized abdominal pain (principal); R10.2 Pelvic and perineal pain; E66.2 Morbid (severe) obesity with alveolar hypoventilation; J45.909 Unspecified asthma, uncomplicated; Z87.448 Personal history of other diseases of urinary system; Z87.442 Personal history of urinary calculi; Z79.899 Other long term (current) drug therapy; Z88.2 Allergy status to sulfonamides; Z91.89 Other specified personal risk factors, not elsewhere classified

== ENCOUNTER → 2019-05-25 | Outpatient (CLI) | payer OTHER ==
[~2019-05-25] MED LIST changes: +BETA115CR TOP; +DITR5TAB PO
[2019-05-25 17:26] LABS: IMMUNOGLOBULIN M 59.3 MG/DL (40-230)
[2019-05-30 00:06] LABS: ALPHA 1 ANTITRYPSIN 125 mg/dL (90-200); D001-IgE D pteronyssinus 1.57 kU/L (Class III); E001-IgE Cat Epith/Dander 2.17 kU/L (Class III); E003-IGE HORSE EPITHELIA/DAND <0.10 kU/L (Class 0); E004-IGE COW DANDER <0.10 kU/L (Class 0); E005-IgE Dog Dander 3.12 kU/L (Class III); F002-IgE Milk < 0.10 kU/L (Class 0); F004-IgE Wheat < 0.10 kU/L (Class 0); F013-IgE Peanut < 0.10 kU/L (Class 0); F014-IgE Soybean < 0.10 kU/L (Class 0); F026-IgE Pork < 0.10 kU/L (Class 0); F027-IgE Beef < 0.10 kU/L (Class 0); F245-IgE Egg, Whole < 0.10 kU/L (Class 0); FX02-IgE Food Mix (Sea Foods) Negative (.); G002-IgE Bermuda Grass < 0.10 kU/L (Class 0); G008-IgE Kentucky Bluegrass < 0.10 kU/L (Class 0); M001-IgE Penicillium chrysogen < 0.10 kU/L (Class 0); M002 IgE Cladosporium herbaru < 0.10 kU/L (Class 0); M003 IgE Aspergillus fumigatu < 0.10 kU/L (Class 0); M006-IgE Alternaria alternata < 0.10 kU/L (Class 0); T001-IgE Maple/Box Elder < 0.10 kU/L (Class 0); T003-IgE Common Silver Birch < 0.10 kU/L (Class 0); T006-IgE Cedar, Mountain < 0.10 kU/L (Class 0); T007-IgE Oak, White < 0.10 kU/L (Class 0); T008-IgE Elm, American < 0.10 kU/L (Class 0); T015-IgE Ash, White < 0.10 kU/L (Class 0); T041-IgE Hickory, White < 0.10 kU/L (Class 0); T070-IgE White Mulberry < 0.10 kU/L (Class 0); W001-IgE Ragweed, Short < 0.10 kU/L (Class 0); W009-IgE Plantain, English < 0.10 kU/L (Class 0); W014-IgE Pigweed, Rough < 0.10 kU/L (Class 0); W018-IgE Sheep Sorrel < 0.10 kU/L (Class 0)
== END ==
LOC: M LAB 14:53
PROVIDERS: ATTEND Allergy & Immunology
DX: L20.9 Atopic dermatitis, unspecified (principal); R05 Cough; J30.1 Allergic rhinitis due to pollen; J30.81 Allergic rhinitis due to animal (cat) (dog) hair and dander; J30.89 Other allergic rhinitis

== ENCOUNTER → 2019-05-25 | Outpatient (CLI) | payer OTHER ==
[2019-05-25 19:28] LABS: APPEARANCE, URINE CLOUDY (CLEAR); BACTERIA, URINE AUTO NEGATIVE (NEGATIVE); BILIRUBIN, URINE AUTO NEGATIVE (NEGATIVE); BLOOD, URINE BLOOD NEGATIVE (NEGATIVE); COLOR, URINE YELLOW (YELLOW); GLUCOSE, URINE (UA) AUTO NEGATIVE (NEGATIVE); KETONE, URINE AUTO NEGATIVE (NEGATIVE); LEUKOCYTE ESTERASE, URINE AUTO TRACE (NEGATIVE); MUCUS, URINE SMALL (NEGATIVE); NITRITE, URINE AUTO NEGATIVE (NEGATIVE); PROTEIN, URINE AUTO NEGATIVE (NEGATIVE); RBC, URINE AUTO 1 /HPF (0-3); SPECIFIC GRAVITY URINE AUTO 1.009 (1.002-1.035); SQUAMOUS EPITHELIAL CELL UR AU 6 /HPF (0-6); UROBILINOGEN, URINE AUTO 0.2 mg/dL (0.0-2.0); WBC, URINE AUTO 1 /HPF (0-3)
== END ==
LOC: M LAB 08:00
PROVIDERS: ATTEND Nurse Practitioner Family
DX: R50.9 Fever, unspecified (principal)

== ENCOUNTER → 2019-05-31 | Outpatient (CLI) | payer OTHER ==
--- NOTE | 2019-05-31 20:50 | REP ---
HISTORY: History of renal calculi. COMPARISON: Multiple, the latest 04/05/2019. The lung bases are clear. Limited evaluation of solid intraabdominal organs show no gross abnormalities or significant changes from the prior examination. Surgical clips are again seen in the gallbladder fossa from previous cholecystectomy. Hepatic and splenic densities are within normal limits. Limited evaluation of the pancreas, adrenal glands and kidneys show no gross abnormalities or significant changes from the prior exam. There is no nephroureterolithiasis, hydronephrosis or hydroureter. There are no ureteroliths. There are no urinary bladder calcifications. There is a tiny unchanged left hemipelvic phlebolith. Limited evaluation of the intra-abdominal and intrapelvic bowel loops and the mesenteries show no gross abnormalities or significant changes from the prior exam. Limited evaluation of the abdominal aorta and periaortic regions show no gross abnormalities or significant changes from the prior exam. There is no evidence of an intra-abdominal or intrapelvic mass or adenopathy. Tiny mesenteric lymph nodes are noted, status quo. Bone window technique throughout the examination shows the osseous structures to be stable and intact. IMPRESSION: No acute intra-abdominal or intrapelvic disease. No significant change from the prior exam. Findings as described above. Electronically Signed by Ankush Barragan DO 06/01/2019 02:10 P
== END ==
LOC: M RAD 17:34
PROVIDERS: ATTEND Internal Medicine Nephrology
DX: N20.0 Calculus of kidney (principal)

== ENCOUNTER → 2019-07-04 | Outpatient (CLI) | payer OTHER ==
[2019-07-04 09:50] LABS: BASO # 0.1 10^3/uL (0.0-0.2); BASO % 0.4 % (0.0-1.0); EOS # 0.3 10^3/uL (0.0-0.5); EOS % 2.4 % (0.0-3.0); HEMATOCRIT 41.1 % (36.0-47.0); HEMOGLOBIN 12.6 g/dl (12.0-15.5); LYMPH # 3.6 10^3/uL (1.5-5.0); LYMPH % 32.4 % (24.0-44.0); MEAN CORPUSCULAR HEMOGLOBIN 26.2 pg (27.0-33.0); MEAN CORPUSCULAR HGB CONC 30.7 g/dl (32.0-36.5); MEAN CORPUSCULAR VOLUME 85.4 fl (80.0-96.0); MONO # 0.6 10^3/uL (0.0-0.8); MONO % 5.5 % (0.0-5.0); NEUTROPHILS # 6.6 10^3/uL (1.5-8.5); NEUTROPHILS % 58.9 % (36.0-66.0); PLATELET COUNT, AUTOMATED 307 10^3/uL (150-450); RED BLOOD COUNT 4.81 10^6/uL (4.00-5.40); WHITE BLOOD COUNT 11.2 10^3/uL (4.0-10.0)
[2019-07-04 10:28] LABS: ALBUMIN 3.6 GM/DL (3.2-5.2); ALT/SGPT 35 U/L (12-78); BILIRUBIN,TOTAL 0.3 MG/DL (0.2-1.0); BLOOD UREA NITROGEN 8 MG/DL (7-18); CALCIUM LEVEL 8.9 MG/DL (8.5-10.1); CARBON DIOXIDE LEVEL 29 MEQ/L (21-32); CHLORIDE LEVEL 105 MEQ/L (98-107); CREATININE FOR GFR 0.64 MG/DL (0.55-1.30); FREE T3 3.6 PG/ML (2.2-4.0); FREE T4 1.09 NG/DL (0.76-1.46); GLOMERULAR FILTRATION RATE > 60.0 (>60); GLUCOSE, FASTING 71 MG/DL (70-100); POTASSIUM SERUM 3.9 MEQ/L (3.5-5.1); SODIUM LEVEL 140 MEQ/L (136-145); TOTAL PROTEIN 7.3 GM/DL (6.4-8.2)
[2019-07-04 10:32] LABS: TOTAL 25(OH) VITAMIN D 27.7 NG/ML (30.0-100.0)
[2019-07-04 10:33] LABS: THYROID PEROXIDASE ANTIBODY 30.2 U/ML (<60.0)
== END ==
LOC: M LAB 08:52
PROVIDERS: ATTEND Nurse Practitioner Pediatrics
DX: F34.1 Dysthymic disorder (principal); F90.0 Attention-deficit hyperactivity disorder, predominantly inattentive type; K58.0 Irritable bowel syndrome with diarrhea; J30.5 Allergic rhinitis due to food; E55.9 Vitamin D deficiency, unspecified; E03.8 Other specified hypothyroidism

== ENCOUNTER 2019-07-11 16:02 | Emergency (ER) | payer OTHER ==
[~2019-07-11] VITALS: Ht 175.3 cm; Wt 161.3 kg
[2019-07-11] MEDS ORDERED: METF10004 (16:11)
[2019-07-11] MEDS ORDERED: MONO0.25 (16:11)
[2019-07-11 16:36] LABS: BASO % 0.5 % (0.0-1.0); EOS # 0.2 10^3/uL (0.0-0.5); EOS % 2.7 % (0.0-3.0); HEMATOCRIT 41.1 % (36.0-47.0); HEMOGLOBIN 12.8 g/dl (12.0-15.5); LYMPH # 2.4 10^3/uL (1.5-5.0); LYMPH % 27.9 % (24.0-44.0); MEAN CORPUSCULAR HEMOGLOBIN 26.3 pg (27.0-33.0); MEAN CORPUSCULAR HGB CONC 31.1 g/dl (32.0-36.5); MEAN CORPUSCULAR VOLUME 84.4 fl (80.0-96.0); MONO # 0.5 10^3/uL (0.0-0.8); MONO % 5.5 % (0.0-5.0); NEUTROPHILS # 5.4 10^3/uL (1.5-8.5); NEUTROPHILS % 63.2 % (36.0-66.0); PLATELET COUNT, AUTOMATED 309 10^3/uL (150-450); RED BLOOD COUNT 4.87 10^6/uL (4.00-5.40); WHITE BLOOD COUNT 8.5 10^3/uL (4.0-10.0)
[2019-07-11 17:09] LABS: ALBUMIN 3.6 GM/DL (3.2-5.2); ALT/SGPT 51 U/L (12-78); BILIRUBIN,DIRECT 0.1 MG/DL (0.0-0.2); BILIRUBIN,TOTAL 0.5 MG/DL (0.2-1.0); BLOOD UREA NITROGEN 10 MG/DL (7-18); CALCIUM LEVEL 9.2 MG/DL (8.5-10.1); CARBON DIOXIDE LEVEL 28 MEQ/L (21-32); CHLORIDE LEVEL 106 MEQ/L (98-107); CREATININE FOR GFR 0.66 MG/DL (0.55-1.30); GLOMERULAR FILTRATION RATE > 60.0 (>60); GLUCOSE, FASTING 88 MG/DL (70-100); LIPASE 79 U/L (73-393); POTASSIUM SERUM 4.1 MEQ/L (3.5-5.1); SODIUM LEVEL 140 MEQ/L (136-145); TOTAL PROTEIN 7.4 GM/DL (6.4-8.2)
[2019-07-11 17:24] LABS: HCG, SERUM QUALITATIVE NEGATIVE (NEGATIVE)
[2019-07-11] MEDS ORDERED: KETOROLAC 30 MG/ML VIAL (J1885) IV ONE (19:00)
[2019-07-11] MEDS ORDERED: PENICILLIN V POTASSIUM 500 MG TAB PO ONE (19:00)
[2019-07-11] MEDS ORDERED: FLUCONAZOLE 50MG TABLET PO ONE (19:15)
[2019-07-11] MEDS ORDERED: ISOVUE-370 76% 100ML VIAL (Q9967) As Ordered ONE (19:28)
[2019-07-11] MEDS ORDERED: CEFDINIR 300 MG CAP (OMNICEF) PO SCH (21:00)
--- NOTE | 2019-07-11 21:01 | REPVR ---
PROCEDURE INFORMATION: Exam: CT Abdomen And Pelvis Without Contrast Exam date and time: 07/11/2019 7:48 PM Clinical history: 23 years old, female; Abdominal pain; Localized; Right; Additional info: RT CVA tenderness and RT [id number] abd pain TECHNIQUE: Imaging protocol: Computed tomography of the abdomen and pelvis without contrast. Radiation optimization: All CT scans at this facility use at least one of these dose optimization techniques: automated exposure control; mA and/or kV adjustment per patient size (includes targeted exams where dose is matched to clinical indication); or iterative reconstruction. COMPARISON: CT ABD PELVIS W/O CONTRAST 05/31/2019 5:50 PM FINDINGS: Liver: Normal. No mass. Gallbladder and bile ducts: There has been prior cholecystectomy. Pancreas: Normal. No ductal dilation. Spleen: Normal. No splenomegaly. Adrenals: Normal. No mass. Kidneys and ureters: Normal. No hydronephrosis. Stomach and bowel: Unremarkable. No obstruction. No mucosal thickening. Appendix: No evidence of appendicitis. Intraperitoneal space: Unremarkable. No free air. No significant fluid collection. Vasculature: Unremarkable. No abdominal aortic aneurysm. Lymph nodes: Unremarkable. No enlarged lymph nodes. Bladder: Unremarkable as visualized. Reproductive: Unremarkable as visualized. Bones/joints: There are degenerative changes in the spine and pelvis. Soft tissues: Unremarkable. IMPRESSION: No acute findings. Electronically signed by: Kye Schultz On 07/11/2019 21:01:01 PM
--- NOTE | 2019-07-11 21:08 | REPVR ---
PROCEDURE INFORMATION: Exam: CT Abdomen And Pelvis With Contrast Exam date and time: 07/11/2019 7:48 PM Clinical history: 23 years old, female; Abdominal pain; Localized; Right; Additional info: RT CVA tenderness and RT [id number] abd pain TECHNIQUE: Imaging protocol: Computed tomography of the abdomen and pelvis with intravenous contrast. Radiation optimization: All CT scans at this facility use at least one of these dose optimization techniques: automated exposure control; mA and/or kV adjustment per patient size (includes targeted exams where dose is matched to clinical indication); or iterative reconstruction. Contrast material: ISOVUE 370; Contrast volume: 100 ml; Contrast route: IV; COMPARISON: CT ABD PELVIS W/O CONTRAST 05/31/2019 5:50 PM FINDINGS: Liver: Normal. No mass. Gallbladder and bile ducts: There has been prior cholecystectomy. Pancreas: Normal. No ductal dilation. Spleen: Normal. No splenomegaly. Adrenals: Normal. No mass. Kidneys and ureters: Normal. No hydronephrosis. Stomach and bowel: Unremarkable. No obstruction. No mucosal thickening. Appendix: No evidence of appendicitis. Intraperitoneal space: Unremarkable. No free air. No significant fluid collection. Vasculature: Small phleboliths in the pelvis. Vasculature is unremarkable. Lymph nodes: Unremarkable. No enlarged lymph nodes. Bladder: Unremarkable as visualized. Reproductive: Unremarkable as visualized. Bones/joints: Unremarkable. No acute fracture. Soft tissues: Unremarkable. IMPRESSION: No acute findings. Electronically signed by: Kye Schultz On 07/11/2019 21:08:23 PM
[2019-07-11] MEDS ORDERED: CEFD300CAP PO (21:43)
[2019-07-11] MEDS ORDERED: DIFL150T PO (21:44)
[2019-07-11 21:46] VITALS: BP 130/84
== END 2019-07-11 22:03 | disposition home or self-care (01) ==
LOC: M ED 16:02
DX: J02.0 Streptococcal pharyngitis (principal); I10 Essential (primary) hypertension; J45.909 Unspecified asthma, uncomplicated; R73.03 Prediabetes; E28.2 Polycystic ovarian syndrome; G89.29 Other chronic pain; M54.9 Dorsalgia, unspecified; N32.81 Overactive bladder; Z79.899 Other long term (current) drug therapy; Z79.84 Long term (current) use of oral hypoglycemic drugs; Z88.1 Allergy status to other antibiotic agents; Z88.2 Allergy status to sulfonamides; Z91.048 Other nonmedicinal substance allergy status
CPT/HCPCS: 74176; 74177; 80048; 80076; 81001; 83690; 84702; 84703; 85025; 87086; 87880; 96374; 99284; J1885; Q9967

== ENCOUNTER → 2019-07-19 | Outpatient (REF) | payer OTHER ==
[~2019-07-19] MED LIST changes: +CEFD300CAP PO; +DIFL150T PO; +METF10004; +MONO0.25
[2019-07-20 13:13] LABS: APPEARANCE, URINE CLEAR (CLEAR); BACTERIA, URINE AUTO NEGATIVE (NEGATIVE); BILIRUBIN, URINE AUTO NEGATIVE (NEGATIVE); BLOOD, URINE BLOOD 1+ (NEGATIVE); COLOR, URINE YELLOW (YELLOW); GLUCOSE, URINE (UA) AUTO NEGATIVE (NEGATIVE); KETONE, URINE AUTO NEGATIVE (NEGATIVE); LEUKOCYTE ESTERASE, URINE AUTO NEGATIVE (NEGATIVE); NITRITE, URINE AUTO NEGATIVE (NEGATIVE); PROTEIN, URINE AUTO NEGATIVE (NEGATIVE); RBC, URINE AUTO 0 /HPF (0-3); SPECIFIC GRAVITY URINE AUTO 1.012 (1.002-1.035); SQUAMOUS EPITHELIAL CELL UR AU 0 /HPF (0-6); UROBILINOGEN, URINE AUTO 0.2 mg/dL (0.0-2.0); WBC, URINE AUTO 0 /HPF (0-3)
== END ==
LOC: M SMT 12:37
PROVIDERS: ATTEND Nurse Practitioner Women's Health
DX: R39.15 Urgency of urination (principal)

== ENCOUNTER → 2019-08-16 | Outpatient (CLI) | payer OTHER ==
[2019-08-16 16:01] LABS: ALBUMIN 3.2 GM/DL (3.2-5.2); ALT/SGPT 48 U/L (12-78); BILIRUBIN,DIRECT 0.1 MG/DL (0.0-0.2); BILIRUBIN,TOTAL 0.4 MG/DL (0.2-1.0); IMMUNOGLOBULIN E 86.3 IU/ML (<100); IMMUNOGLOBULIN G 1090 MG/DL (681-1648); IMMUNOGLOBULIN M 77.7 MG/DL (40-230); RHEUMATOID FACTOR QUANT < 10.0 IU/ML (<15.0); TOTAL PROTEIN 6.7 GM/DL (6.4-8.2)
[2019-08-19 10:35] LABS: HEPATITIS B SURFACE ANTIBODY POSITIVE (POSITIVE)
[2019-08-19 10:45] LABS: HEPATITIS B SURFACE ANTIGEN NEGATIVE (NEGATIVE)
[2019-08-19 11:13] LABS: HEPATITIS C VIRUS ABY INDEX 0.2 INDEX (<0.8)
[2019-08-19 11:14] LABS: HIV 1&2 SCREEN CENTAUR NEGATIVE (NEGATIVE)
[2019-08-20 00:09] LABS: ANA (HEP2) Negative (.); CYCLIC CITRULLINATED PEPTIDE 6 units (0-19)
== END ==
LOC: M LAB 14:52
PROVIDERS: ATTEND Internal Medicine Infectious Disease
DX: B27.90 Infectious mononucleosis, unspecified without complication (principal); M25.50 Pain in unspecified joint

== ENCOUNTER → 2019-09-06 | Outpatient (CLI) | payer OTHER | LOC: M LAB 12:25 | PROVIDERS: ATTEND Internal Medicine Gastroenterology | DX: K58.0 Irritable bowel syndrome with diarrhea (principal) ==

== ENCOUNTER → 2019-10-13 | Outpatient (REF) | payer OTHER | LOC: M LAB REF 17:10 | PROVIDERS: ATTEND Internal Medicine Gastroenterology | DX: K58.0 Irritable bowel syndrome with diarrhea (principal) ==

== ENCOUNTER → 2019-11-10 | Outpatient (REF) | payer OTHER ==
[~2019-11-10] MED LIST changes: +ADDE20CA3 PO; +DIPH25CA32 PO; +FLUO20CA20 PO; -METF10004; +METF10004 PO; +NYST10CR EXT; +OSCI0.37 PO; +PROAAER10 INH; +VITA1CHW7 PO; +ZOFR4TAB16 PO
[2019-11-10 14:02] LABS: APPEARANCE, URINE CLEAR (CLEAR); BACTERIA, URINE AUTO NEGATIVE (NEGATIVE); BILIRUBIN, URINE AUTO 1+ (NEGATIVE); BLOOD, URINE BLOOD NEGATIVE (NEGATIVE); COLOR, URINE YELLOW (YELLOW); GLUCOSE, URINE (UA) AUTO NEGATIVE (NEGATIVE); KETONE, URINE AUTO NEGATIVE (NEGATIVE); LEUKOCYTE ESTERASE, URINE AUTO NEGATIVE (NEGATIVE); MUCUS, URINE SMALL (NEGATIVE); NITRITE, URINE AUTO NEGATIVE (NEGATIVE); PROTEIN, URINE AUTO NEGATIVE (NEGATIVE); RBC, URINE AUTO 0 /HPF (0-3); SPECIFIC GRAVITY URINE AUTO 1.031 (1.002-1.035); SQUAMOUS EPITHELIAL CELL UR AU 1 /HPF (0-6); UROBILINOGEN, URINE AUTO 0.2 mg/dL (0.0-2.0); WBC, URINE AUTO 2 /HPF (0-3)
== END ==
LOC: M SMT 13:25
PROVIDERS: ATTEND Nurse Practitioner Women's Health
DX: N39.44 Nocturnal enuresis (principal)

== ENCOUNTER → 2020-03-13 | Outpatient (REF) | payer OTHER ==
[~2020-03-13] MED LIST changes: +COLE1TAB PO; +FLUO20CA22; +GABA800T4; +MELA3TAB63 PO; -VITA1TAB23 PO; +VITA250T20 PO; +VITALIQ26 XX; +[UNRECOGNIZED DRUG - CODE] PO
[2020-03-13 19:10] LABS: ALBUMIN 3.5 GM/DL (3.2-5.2); ALT/SGPT 32 U/L (12-78); BILIRUBIN,TOTAL 0.3 MG/DL (0.2-1.0); BLOOD UREA NITROGEN 9 MG/DL (7-18); CALCIUM LEVEL 8.8 MG/DL (8.5-10.1); CARBON DIOXIDE LEVEL 28 MEQ/L (21-32); CHLORIDE LEVEL 106 MEQ/L (98-107); CHOLESTEROL LEVEL 127 MG/DL (<200); CREATININE FOR GFR 0.62 MG/DL (0.55-1.30); FREE T4 0.86 NG/DL (0.76-1.46); GLOMERULAR FILTRATION RATE > 60.0 (>60); GLUCOSE, FASTING 76 MG/DL (70-100); HDL CHOLESTEROL 50 MG/DL (>40); LDL CHOLESTEROL 51 MG/DL (<100); NON-HDL-C 77 MG/DL; POTASSIUM SERUM 4.1 MEQ/L (3.5-5.1); SODIUM LEVEL 136 MEQ/L (136-145); TOTAL PROTEIN 7.2 GM/DL (6.4-8.2); TRIGLYCERIDES LEVEL 128 MG/DL (<150)
[2020-03-13 19:11] LABS: BASO % 0.4 % (0.0-1.0); EOS # 0.2 10^3/uL (0.0-0.5); EOS % 2.4 % (0.0-3.0); HEMATOCRIT 41.1 % (36.0-47.0); HEMOGLOBIN 12.7 g/dl (12.0-15.5); LYMPH # 2.6 10^3/uL (1.5-5.0); LYMPH % 26.9 % (24.0-44.0); MEAN CORPUSCULAR HEMOGLOBIN 26.7 pg (27.0-33.0); MEAN CORPUSCULAR HGB CONC 30.9 g/dl (32.0-36.5); MEAN CORPUSCULAR VOLUME 86.3 fl (80.0-96.0); MONO # 0.5 10^3/uL (0.0-0.8); MONO % 5.3 % (0.0-5.0); NEUTROPHILS # 6.1 10^3/uL (1.5-8.5); NEUTROPHILS % 64.5 % (36.0-66.0); PLATELET COUNT, AUTOMATED 288 10^3/uL (150-450); RED BLOOD COUNT 4.76 10^6/uL (4.00-5.40); WHITE BLOOD COUNT 9.5 10^3/uL (4.0-10.0)
[2020-03-13 19:12] LABS: HEMOGLOBIN A1c 5.1 %
[2020-03-14 09:52] LABS: TOTAL 25(OH) VITAMIN D 16.2 NG/ML (30.0-100.0)
== END ==
LOC: M LAB REF 18:20
PROVIDERS: ATTEND Nurse Practitioner Family
DX: F41.8 Other specified anxiety disorders (principal); Z13.9 Encounter for screening, unspecified; J30.2 Other seasonal allergic rhinitis; G60.9 Hereditary and idiopathic neuropathy, unspecified; E66.01 Morbid (severe) obesity due to excess calories; E55.9 Vitamin D deficiency, unspecified; Z13.220 Encounter for screening for lipoid disorders; Z13.29 Encounter for screening for other suspected endocrine disorder

== ENCOUNTER → 2020-06-06 | Outpatient (REF) | payer OTHER, MEDICAID ==
[2020-06-06 19:18] LABS: BASO % 0.4 % (0.0-1.0); EOS # 0.3 10^3/uL (0.0-0.5); EOS % 2.3 % (0.0-3.0); HEMATOCRIT 40.8 % (36.0-47.0); HEMOGLOBIN 12.2 g/dl (12.0-15.5); MEAN CORPUSCULAR HEMOGLOBIN 25.7 pg (27.0-33.0); MEAN CORPUSCULAR HGB CONC 29.9 g/dl (32.0-36.5); MEAN CORPUSCULAR VOLUME 85.9 fl (80.0-96.0); MONO # 0.6 10^3/uL (0.0-0.8); MONO % 5.2 % (0.0-5.0); NEUTROPHILS # 7.2 10^3/uL (1.5-8.5); NEUTROPHILS % 64.6 % (36.0-66.0); PLATELET COUNT, AUTOMATED 334 10^3/uL (150-450); RED BLOOD COUNT 4.75 10^6/uL (4.00-5.40); WHITE BLOOD COUNT 11.1 10^3/uL (4.0-10.0)
[2020-06-06 19:23] LABS: ALBUMIN 3.4 GM/DL (3.2-5.2); ALT/SGPT 30 U/L (12-78); BILIRUBIN,TOTAL 0.2 MG/DL (0.2-1.0); BLOOD UREA NITROGEN 13 MG/DL (7-18); CALCIUM LEVEL 8.9 MG/DL (8.5-10.1); CARBON DIOXIDE LEVEL 29 MEQ/L (21-32); CHLORIDE LEVEL 108 MEQ/L (98-107); GLOMERULAR FILTRATION RATE > 60.0 (>60); GLUCOSE, FASTING 91 MG/DL (70-100); POTASSIUM SERUM 4.3 MEQ/L (3.5-5.1); SODIUM LEVEL 141 MEQ/L (136-145)
== END ==
LOC: M LAB REF 18:42
PROVIDERS: ATTEND Nurse Practitioner Family
DX: J35.1 Hypertrophy of tonsils (principal)

== ENCOUNTER → 2020-06-20 | Outpatient (CLI) | payer OTHER, MEDICAID | LOC: M LABSMTC 12:48 | PROVIDERS: ATTEND Anesthesiology | DX: Z01.818 Encounter for other preprocedural examination (principal) | CPT/HCPCS: C9803; U0003 ==

== ENCOUNTER 2020-06-25 13:56 | Day surgery (SDC) | payer OTHER ==
[~2020-06-25] VITALS: Ht 175.3 cm; Wt 168.0 kg
[2020-06-25] MEDS ORDERED: propofoL 200 MG/20 ML VIAL As Ordered ONE (14:39)
[2020-06-25] MEDS ORDERED: LIDOCAINE 2% 100MG/5ML SDV (FOR ANES.) As Ordered ONE (14:39)
[2020-06-25] MEDS ORDERED: fentaNYL 100 MCG/2 ML INJECTION (J3010) As Ordered ONE (15:14)
--- NOTE | 2020-06-25 15:17 | ROOR ---
Patient Name: Sangeetha Echavarria Procedure Date: 06/25/2020 3:05 PM Date of : 1995 Age: 24 Room: [facility] Gender: Female Note Status: Finalized Procedure: Upper GI endoscopy Indications: Epigastric abdominal pain, Heartburn Providers: Walter HOUSER MD Referring MD: Dejah Aviles NP Requesting Provider: Medicines: Monitored Anesthesia Care Complications: No immediate complications. Procedure: Pre-Anesthesia Assessment: - The heart rate, respiratory rate, oxygen saturations, blood pressure, adequacy of pulmonary ventilation, and response to care were monitored throughout the procedure. The Endoscope was introduced through the mouth, and advanced to the second part of duodenum. The upper GI endoscopy was accomplished without difficulty. The patient tolerated the procedure well. Findings: The esophagus was normal. The stomach was normal. The examined duodenum was normal. Impression: - Normal esophagus. - Normal stomach. - Normal examined duodenum. - No specimens collected. Recommendation: - Observe patient's clinical course. - Continue present medications. Walter Houser MD Walter HOUSER MD 06/25/2020 3:16:32 PM Electronically signed by Walter HOUSER MD Number of Addenda: 0 Note Initiated On: 06/25/2020 3:05 PM Estimated Blood Loss: Estimated blood loss: none.
--- NOTE | 2020-06-25 15:31 | ROOR ---
Patient Name: Sangeetha Echavarria Procedure Date: 06/25/2020 3:05 PM Date of : 1995 Age: 24 Room: [facility] Gender: Female Note Status: Finalized Procedure: Colonoscopy Indications: Suspected irritable bowel syndrome Providers: Walter HOUSER MD Referring MD: Dejah Aviles NP Requesting Provider: Medicines: Monitored Anesthesia Care Complications: No immediate complications. Procedure: Pre-Anesthesia Assessment: - The heart rate, respiratory rate, oxygen saturations, blood pressure, adequacy of pulmonary ventilation, and response to care were monitored throughout the procedure. The Colonoscope was introduced through the anus and advanced to 10 cm into the ileum. The colonoscopy was performed without difficulty. The patient tolerated the procedure well. The quality of the bowel preparation was good. Findings: The perianal and digital rectal examinations were normal. Internal hemorrhoids were found during retroflexion. The hemorrhoids were small/medium-sized. The entire examined colon appeared normal on direct and retroflexion views. The terminal ileum appeared normal. Impression: - Internal hemorrhoids. - The entire examined colon is normal on direct and retroflexion views. - The examined portion of the ileum was normal. - No specimens collected. - (Irritable Bowel Syndrome/IBS suspected.) Recommendation: - Continue present medications. - Use fiber, for example Citrucel, Fibercon, Konsyl or Metamucil. - Lactose free diet. - Imodium 2 tablets PO BID PRN. Walter Houser MD Walter HOUSER MD 06/25/2020 3:30:49 PM Electronically signed by Walter HOUSER MD Number of Addenda: 0 Note Initiated On: 06/25/2020 3:05 PM Estimated Blood Loss: Estimated blood loss: none.
[2020-06-25 15:58] VITALS: BP 120/52
== END 2020-06-25 16:01 | disposition home or self-care (01) ==
LOC: M OPP 13:56
PROVIDERS: ATTEND Internal Medicine Gastroenterology
DX: R10.13 Epigastric pain (principal); R19.7 Diarrhea, unspecified; K64.8 Other hemorrhoids; E06.3 Autoimmune thyroiditis; Z79.84 Long term (current) use of oral hypoglycemic drugs; Z79.899 Other long term (current) drug therapy; Z91.048 Other nonmedicinal substance allergy status; Z88.2 Allergy status to sulfonamides; Z88.8 Allergy status to other drugs, medicaments and biological substances
CPT/HCPCS: 43235; 45378; J3010

== ENCOUNTER → 2020-07-25 | Outpatient (CLI) | payer OTHER ==
[~2020-07-25] MED LIST changes: +CHOL1250 PO; +DESM0.2T10 PO; -FLUTISP; +FLUTISP INH; -GABA800T4; +GABA800T4 PO; -MELA3TAB63 PO; +MELA3TAB70 PO; +OXYB5TAB10 PO; -SPIR-10; +SPIR-10 PO
== END ==
LOC: M LABSMTC 14:30
PROVIDERS: ATTEND Anesthesiology
DX: Z01.812 Encounter for preprocedural laboratory examination (principal); Z20.828 Contact with and (suspected) exposure to other viral communicable diseases

== ENCOUNTER 2020-07-30 09:02 | Day surgery (SDC) | payer OTHER ==
[~2020-07-30] VITALS: Ht 175.3 cm; Wt 171.9 kg
[~2020-07-30 09:02] MED LIST changes: +CEPH250REC PO; +HYDR1SOL PO; +IBUP1TAB7 PO
[2020-07-30] MEDS ORDERED: LR 1,000 ML IV ONE (10:15)
[2020-07-30] MEDS ORDERED: BUPIVACAINE HCL 0.5% 30 ML VIAL As Ordered ONE (11:18)
[2020-07-30] MEDS ORDERED: ROCURONIUM BROMIDE 50 MG/5 ML VIAL As Ordered ONE (11:31)
[2020-07-30] MEDS ORDERED: dexameTHASONE 4 MG/ML 1ML VIAL (J1100 PER 1MG) As Ordered ONE (11:31)
[2020-07-30] MEDS ORDERED: propofoL 200 MG/20 ML VIAL As Ordered ONE ×2 (11:31→11:50)
[2020-07-30] MEDS ORDERED: METOCLOPRAMIDE INJ 10MG/2ML VIAL (J2765 PER 1) As Ordered ONE (11:31)
[2020-07-30] MEDS ORDERED: SUGAMMADEX SODIUM 500 MG/5 ML VIAL (BRIDION) As Ordered ONE (11:31)
[2020-07-30] MEDS ORDERED: ONDANSETRON 4MG/2ML VIAL As Ordered ONE (11:31)
[2020-07-30] MEDS ORDERED: fentaNYL 100 MCG/2 ML INJECTION (J3010) As Ordered ONE ×2 (11:31→12:14)
[2020-07-30] MEDS ORDERED: LIDOCAINE 2% 100MG/5ML SDV (FOR ANES.) As Ordered ONE (11:31)
[2020-07-30] MEDS ORDERED: ACETAMINOPHEN 1000MG 100ML IV BTL (OFIRMEV) (J0131 PER 10MG) As Ordered ONE (11:44)
[2020-07-30] MEDS: fentaNYL 100 MCG/2 ML INJECTION (J3010) IV PRN ×2 (12:18→12:45)
[2020-07-30] MEDS ORDERED: ONDANSETRON 4MG/2ML VIAL IV PRN (12:30)
[2020-07-30] MEDS ORDERED: oxyCODONE 5MG TAB PO PRN (12:30)
[2020-07-30] MEDS ORDERED: LR 1,000 ML IV SCH (12:30)
[2020-07-30] MEDS ORDERED: HYDROMORPHONE HCL 0.5 MG/ 0.5 ML SYRINGE (J1170 PER 1) IV PRN (12:30)
[2020-07-30] MEDS ORDERED: PERCOCET 5MG/325MG TAB PO PRN (13:00)
[2020-07-30 15:10] VITALS: BP 120/79
== END 2020-07-30 15:25 | disposition home or self-care (01) ==
LOC: M SDC 09:02
PROVIDERS: ATTEND Specialist
DX: J35.01 Chronic tonsillitis (principal); J45.909 Unspecified asthma, uncomplicated; E28.2 Polycystic ovarian syndrome; F41.9 Anxiety disorder, unspecified; F32.9 Major depressive disorder, single episode, unspecified; F43.10 Post-traumatic stress disorder, unspecified; Z79.899 Other long term (current) drug therapy; Z91.040 Latex allergy status; Z88.2 Allergy status to sulfonamides
CPT/HCPCS: 42826; 81025; 88302; J0131; J1100; J2405; J2765; J3010

== ENCOUNTER → 2020-08-03 | Outpatient (CLI) | payer OTHER | LOC: M LABSMTC 11:57 | PROVIDERS: ATTEND Anesthesiology | DX: Z01.812 Encounter for preprocedural laboratory examination (principal); Z20.828 Contact with and (suspected) exposure to other viral communicable diseases ==

== ENCOUNTER → 2020-08-15 | Outpatient (REF) | payer OTHER ==
[2020-08-15 17:45] LABS: APPEARANCE, URINE CLEAR (CLEAR); BACTERIA, URINE AUTO NEGATIVE (NEGATIVE); BILIRUBIN, URINE AUTO NEGATIVE (NEGATIVE); BLOOD, URINE BLOOD NEGATIVE (NEGATIVE); COLOR, URINE YELLOW (YELLOW); GLUCOSE, URINE (UA) AUTO NEGATIVE (NEGATIVE); KETONE, URINE AUTO NEGATIVE (NEGATIVE); LEUKOCYTE ESTERASE, URINE AUTO NEGATIVE (NEGATIVE); MUCUS, URINE SMALL (NEGATIVE); NITRITE, URINE AUTO NEGATIVE (NEGATIVE); PROTEIN, URINE AUTO NEGATIVE (NEGATIVE); RBC, URINE AUTO 1 /HPF (0-3); SPECIFIC GRAVITY URINE AUTO 1.017 (1.002-1.035); SQUAMOUS EPITHELIAL CELL UR AU 0 /HPF (0-6); UROBILINOGEN, URINE AUTO 0.2 mg/dL (0.0-2.0); WBC, URINE AUTO 2 /HPF (0-3)
== END ==
LOC: M SMT 17:11
PROVIDERS: ATTEND Nurse Practitioner Family
DX: R82.90 Unspecified abnormal findings in urine (principal)

== ENCOUNTER → 2020-10-15 | Outpatient (CLI) | payer OTHER ==
[~2020-10-15] MED LIST changes: +E-Z-GAS II EFFERVESCENT PACKET (SODIUM BICARB./CITRIC ACID/SIMETHICONE) As Ordered ONE; +E-Z-HD 98% w/w 340GM SUSP BTL As Ordered ONE; +E-Z-PAQUE 96% w/w SUSP 176GM BTL As Ordered ONE; +GABA-282; -GABA-843; +LISI10TA22; -LISI10TA4
--- NOTE | 2020-10-15 16:16 | REP ---
INDICATION: DYSPHAGIA. COMPARISON: None TECHNIQUE: This procedure was performed by Marlen Sanabria [facility], under the direct supervision of Dr. Delacruz. Images were reviewed with Dr. Delacruz prior to dictation. Liquid barium and gas producing crystals were given in the erect position, as well as liquid barium in the prone oblique position in order to perform a double contrast esophagram examination. FINDINGS: A single view PA chest x-ray is submitted as a burner tender film. The superior mediastinal structures are midline. The heart size is within normal limits. The lungs are clear. The oral and pharyngeal stages of deglutition were unremarkable. Esophageal transport is prompt and efficient and there is no evidence of esophagitis, stricture, or mucosal ring. There is no evidence of a hiatal hernia. There was no gastroesophageal reflux noted . IMPRESSION: Unremarkable esophagram. 0.3 minutes of fluoroscopy time was utilized for this procedure. Some fluoroscopic images are performed with last image hold technology. These images require no additional radiation. <Electronically signed by Marlen Sanabria > 10/15/20 1602 <Electronically signed by Bar Delacruz > 10/15/20 1618
== END ==
LOC: M RAD 07:56
PROVIDERS: ATTEND Physician Assistant Medical
DX: R13.10 Dysphagia, unspecified (principal)

== ENCOUNTER → 2020-10-17 | Outpatient (REF) | payer OTHER ==
[~2020-10-17] MED LIST changes: -E-Z-GAS II EFFERVESCENT PACKET (SODIUM BICARB./CITRIC ACID/SIMETHICONE) As Ordered ONE; -E-Z-HD 98% w/w 340GM SUSP BTL As Ordered ONE; -E-Z-PAQUE 96% w/w SUSP 176GM BTL As Ordered ONE
== END ==
LOC: M LAB REF 18:50
PROVIDERS: ATTEND Nurse Practitioner Family
DX: R07.0 Pain in throat (principal)

== ENCOUNTER → 2020-12-18 | Outpatient (CLI) | payer OTHER ==
[2020-12-18 15:16] LABS: BASO # 0.1 10^3/uL (0.0-0.2); BASO % 0.6 % (0.0-1.0); EOS # 0.2 10^3/uL (0.0-0.5); EOS % 1.7 % (0.0-3.0); HEMATOCRIT 44.9 % (36.0-47.0); HEMOGLOBIN 13.5 g/dl (12.0-15.5); LYMPH # 2.2 10^3/uL (1.5-5.0); LYMPH % 25.5 % (24.0-44.0); MEAN CORPUSCULAR HEMOGLOBIN 25.3 pg (27.0-33.0); MEAN CORPUSCULAR HGB CONC 30.1 g/dl (32.0-36.5); MEAN CORPUSCULAR VOLUME 84.1 fl (80.0-96.0); MONO # 0.4 10^3/uL (0.0-0.8); NEUTROPHILS # 5.9 10^3/uL (1.5-8.5); NEUTROPHILS % 66.5 % (36.0-66.0); PLATELET COUNT, AUTOMATED 315 10^3/uL (150-450); RED BLOOD COUNT 5.34 10^6/uL (4.00-5.40); WHITE BLOOD COUNT 8.8 10^3/uL (4.0-10.0)
[2020-12-18 15:57] LABS: ALBUMIN 3.9 GM/DL (3.2-5.2); ALT/SGPT 29 U/L (12-78); BILIRUBIN,TOTAL 0.3 MG/DL (0.2-1.0); BLOOD UREA NITROGEN 13 MG/DL (7-18); CARBON DIOXIDE LEVEL 28 MEQ/L (21-32); CHLORIDE LEVEL 107 MEQ/L (98-107); CHOLESTEROL LEVEL 122 MG/DL (<200); CHOLESTEROL RISK RATIO 2.489 (<5); CREATININE FOR GFR 0.64 MG/DL (0.55-1.30); FERRITIN 33 NG/ML (8-252); FREE T4 0.93 NG/DL (0.76-1.46); GLOMERULAR FILTRATION RATE > 60.0 (>60); GLUCOSE, FASTING 78 MG/DL (70-100); HDL CHOLESTEROL 49 MG/DL (>40); IRON (FE) 45 UG/DL (50-170); LDL CHOLESTEROL 54 MG/DL (<100); NON-HDL-C 73 MG/DL; PERCENT SATURATION 12.6 % (13.2-45.0); POTASSIUM SERUM 4.4 MEQ/L (3.5-5.1); SODIUM LEVEL 142 MEQ/L (136-145); TOTAL IRON BINDING CAPACITY 358 UG/DL (250-450); TOTAL PROTEIN 7.6 GM/DL (6.4-8.2); TRIGLYCERIDES LEVEL 93 MG/DL (<150)
[2020-12-18 15:59] LABS: TOTAL 25(OH) VITAMIN D 22.7 NG/ML (30.0-100.0)
[2020-12-18 16:01] LABS: FOLATE 17.5 NG/ML; VITAMIN B12 LEVEL 481 PG/ML
[2020-12-18 16:38] LABS: HEPATITIS C VIRUS ABY INDEX < 0.0 INDEX (<0.8)
[2020-12-18 16:40] LABS: HIV 1&2 SCREEN CENTAUR NEGATIVE (NEGATIVE)
[2020-12-18 16:54] LABS: HEMOGLOBIN A1c 5.1 %
[2020-12-20 20:08] LABS: TESTOSTERONE FREE (DIRECT) 5.9 pg/mL (0.0-4.2)
== END ==
LOC: M LAB 14:20
PROVIDERS: ATTEND Nurse Practitioner Family
DX: K58.2 Mixed irritable bowel syndrome (principal); E66.01 Morbid (severe) obesity due to excess calories; I10 Essential (primary) hypertension; G62.9 Polyneuropathy, unspecified; E56.9 Vitamin deficiency, unspecified

== ENCOUNTER → 2021-04-09 | Outpatient (REF) | payer OTHER | LOC: M LAB REF 16:36 | PROVIDERS: ATTEND Pediatrics | DX: R05 Cough (principal) ==

== ENCOUNTER 2021-07-22 07:50 | Outpatient (RCR) | END 2021-07-22 15:00 | disposition home or self-care (01) | LOC: M EMP 07:50 | PROVIDERS: ATTEND Pediatrics | DX: Z11.52 Encounter for screening for COVID-19 (principal) ==

== ENCOUNTER → 2021-07-26 | Outpatient (REF) | payer OTHER ==
[2021-07-26 14:12] LABS: APPEARANCE, URINE CLEAR (CLEAR); BACTERIA, URINE AUTO NEGATIVE (NEGATIVE); BILIRUBIN, URINE AUTO NEGATIVE (NEGATIVE); BLOOD, URINE BLOOD NEGATIVE (NEGATIVE); COLOR, URINE YELLOW (YELLOW); GLUCOSE, URINE (UA) AUTO NEGATIVE (NEGATIVE); KETONE, URINE AUTO NEGATIVE (NEGATIVE); LEUKOCYTE ESTERASE, URINE AUTO NEGATIVE (NEGATIVE); MUCUS, URINE SMALL (NEGATIVE); NITRITE, URINE AUTO NEGATIVE (NEGATIVE); PROTEIN, URINE AUTO NEGATIVE (NEGATIVE); RBC, URINE AUTO 0 /HPF (0-3); SPECIFIC GRAVITY URINE AUTO 1.025 (1.002-1.035); SQUAMOUS EPITHELIAL CELL UR AU 1 /HPF (0-6); UROBILINOGEN, URINE AUTO 0.2 mg/dL (0.0-2.0); WBC, URINE AUTO 0 /HPF (0-3)
== END ==
LOC: M SMT 13:18
PROVIDERS: ATTEND Urology
DX: N32.81 Overactive bladder (principal)

== ENCOUNTER → 2021-08-06 | Outpatient (CLI) | payer OTHER ==
[~2021-08-06] MED LIST changes: +FLUO-96 PO; -FLUO20CA20 PO; +IBUP-1022 PO; +STIO1AER IN
== END ==
LOC: M RAD 14:10
PROVIDERS: ATTEND Urology
DX: R10.9 Unspecified abdominal pain (principal)

== ENCOUNTER → 2021-08-14 | Outpatient (REF) ==
[~2021-08-14] MED LIST changes: -FLUO-96 PO; +FLUO20CA20 PO; -IBUP-1022 PO; -STIO1AER IN
== END ==
LOC: M LABSMTC 10:33
PROVIDERS: ATTEND Family Medicine
DX: Z11.52 Encounter for screening for COVID-19 (principal); Z20.822 Contact with and (suspected) exposure to COVID-19

== ENCOUNTER → 2021-09-10 | Outpatient (REF) ==
[~2021-09-10] MED LIST changes: +FLUO-96 PO; -FLUO20CA20 PO
== END ==
LOC: M LABSMTC 13:32
PROVIDERS: ATTEND Pediatrics
DX: Z11.52 Encounter for screening for COVID-19 (principal); Z20.822 Contact with and (suspected) exposure to COVID-19

== ENCOUNTER → 2021-09-23 | Outpatient (REF) | LOC: M LABSMTC 10:16 | PROVIDERS: ATTEND Family Medicine | DX: Z11.52 Encounter for screening for COVID-19 (principal); Z20.822 Contact with and (suspected) exposure to COVID-19 ==

== ENCOUNTER 2021-09-27 19:17 | Emergency (ER) | payer OTHER ==
[~2021-09-27] VITALS: Ht 175.3 cm; Wt 166.0 kg
[2021-09-27 19:18] VITALS: BP 164/97
[2021-09-27] MEDS ORDERED: STIO1AER IN (19:50)
[2021-09-27 22:37] LABS: BASO # 0.1 10^3/uL (0.0-0.2); BASO % 0.4 % (0.0-1.0); EOS # 0.1 10^3/uL (0.0-0.5); EOS % 0.6 % (0.0-3.0); HEMOGLOBIN 13.1 g/dl (12.0-15.5); LYMPH # 2.3 10^3/uL (1.5-5.0); LYMPH % 18.9 % (24.0-44.0); MEAN CORPUSCULAR HGB CONC 31.2 g/dl (32.0-36.5); MEAN CORPUSCULAR VOLUME 83.5 fl (80.0-96.0); MONO # 0.5 10^3/uL (0.0-0.8); MONO % 4.1 % (2.0-8.0); NEUTROPHILS # 9.3 10^3/uL (1.5-8.5); NEUTROPHILS % 75.6 % (36.0-66.0); PLATELET COUNT, AUTOMATED 316 10^3/uL (150-450); RED BLOOD COUNT 5.03 10^6/uL (4.00-5.40); WHITE BLOOD COUNT 12.3 10^3/uL (4.0-10.0)
[2021-09-27 22:49] LABS: ABG BASE EXCESS 1.8 (-2.0-2.0); ABG HCO3 26.1 MEQ/L (22.0-26.0); ABG O2 SATURATION 98.4 % (95.0-99.0); ABG PARTIAL PRESSURE CO2 39.8 mmHg (35.0-45.0); ABG PARTIAL PRESSURE O2 111.5 mmHg (75.0-100.0); ABG STANDARD HCO3 26.1 MEQ/L (22.0-26.0); ABG TOTAL CO2 27.3 MEQ/L (22.0-29.0); ABG pH (ARTERIAL) 7.434 UNITS (7.350-7.450)
[2021-09-27 23:09] LABS: BLOOD UREA NITROGEN 8 MG/DL (7-18); CALCIUM LEVEL 8.9 MG/DL (8.5-10.1); CARBON DIOXIDE LEVEL 29 MEQ/L (21-32); CHLORIDE LEVEL 106 MEQ/L (98-107); CREATININE FOR GFR 0.62 MG/DL (0.55-1.30); GLOMERULAR FILTRATION RATE > 60.0 (>60); GLUCOSE, FASTING 89 MG/DL (70-100); POTASSIUM SERUM 4.2 MEQ/L (3.5-5.1); SODIUM LEVEL 139 MEQ/L (136-145)
[2021-09-28] MEDS ORDERED: IBUP-1022 PO (00:19)
[2021-09-28] MEDS ORDERED: KETOROLAC 30 MG/ML 1ML VIAL IV ONE (00:20)
== END 2021-09-28 00:34 | disposition home or self-care (01) ==
LOC: M ED 19:17
DX: R07.89 Other chest pain (principal); R06.02 Shortness of breath; J45.909 Unspecified asthma, uncomplicated; E03.9 Hypothyroidism, unspecified; E28.2 Polycystic ovarian syndrome; Z88.1 Allergy status to other antibiotic agents; Z88.2 Allergy status to sulfonamides; Z91.040 Latex allergy status; Z91.048 Other nonmedicinal substance allergy status; Z79.899 Other long term (current) drug therapy
CPT/HCPCS: 36600; 71046; 80048; 82803; 84702; 85025; 85379; 87798; 93005; 96374; 99284; J1885

== ENCOUNTER → 2021-10-11 | Outpatient (REF) ==
[~2021-10-11] MED LIST changes: +IBUP-1022 PO; +STIO1AER IN
== END ==
LOC: M LABSMTC 11:32
PROVIDERS: ATTEND Family Medicine
DX: Z11.52 Encounter for screening for COVID-19 (principal); Z20.822 Contact with and (suspected) exposure to COVID-19

== ENCOUNTER → 2021-12-30 | Outpatient (REF) | payer OTHER ==
[2021-12-30 18:09] LABS: APPEARANCE, URINE CLEAR (CLEAR); BACTERIA, URINE AUTO NEGATIVE (NEGATIVE); BILIRUBIN, URINE AUTO NEGATIVE (NEGATIVE); BLOOD, URINE BLOOD NEGATIVE (NEGATIVE); COLOR, URINE YELLOW (YELLOW); GLUCOSE, URINE (UA) AUTO NEGATIVE (NEGATIVE); KETONE, URINE AUTO NEGATIVE (NEGATIVE); LEUKOCYTE ESTERASE, URINE AUTO NEGATIVE (NEGATIVE); MUCUS, URINE SMALL (NEGATIVE); NITRITE, URINE AUTO NEGATIVE (NEGATIVE); PROTEIN, URINE AUTO NEGATIVE (NEGATIVE); RBC, URINE AUTO 1 /HPF (0-3); SPECIFIC GRAVITY URINE AUTO 1.015 (1.002-1.035); SQUAMOUS EPITHELIAL CELL UR AU 2 /HPF (0-6); UROBILINOGEN, URINE AUTO 0.2 mg/dL (0.0-2.0); WBC, URINE AUTO 1 /HPF (0-3)
== END ==
LOC: M SMT 17:01
PROVIDERS: ATTEND Nurse Practitioner Women's Health
DX: R82.90 Unspecified abnormal findings in urine (principal)

== ENCOUNTER → 2022-02-06 | Outpatient (REF) | payer OTHER | LOC: M SMT 15:01 | PROVIDERS: ATTEND Specialist | DX: N39.44 Nocturnal enuresis (principal) ==

== ENCOUNTER → 2022-03-06 | Outpatient (CLI) | payer OTHER | LOC: M RAD 18:29 | PROVIDERS: ATTEND Physician Assistant | DX: R06.02 Shortness of breath (principal); J45.909 Unspecified asthma, uncomplicated ==

== ENCOUNTER → 2022-05-05 | Outpatient (REF) | payer OTHER ==
[~2022-05-05] MED LIST changes: +NYST-13 EXT; -NYST10CR EXT
[2022-05-05 22:32] LABS: APPEARANCE, URINE MANUAL CLEAR (CLEAR); COLOR, URINE MANUAL YELLOW (YELLOW)
[2022-05-05 22:33] LABS: BILIRUBIN, URINE MANUAL NEGATIVE (NEGATIVE); GLUCOSE, URINE (UA) MANUAL NEGATIVE (NEGATIVE); KETONE, URINE MANUAL NEGATIVE (NEGATIVE); NITRITE, URINE MANUAL POSITIVE (NEGATIVE); PROTEIN, URINE MANUAL TRACE mg/dL (NEGATIVE); SPECIFIC GRAVITY,URINE MANUAL 1.015 (1.002-1.035); UROBILINOGEN, URINE MANUAL NORMAL (NORMAL)
[2022-05-05 22:34] LABS: BLOOD URINE MANUAL TRACE (NEGATIVE); LEUKOCYTE ESTERASE, URINE MAN TRACE (NEGATIVE)
[2022-05-05 22:50] LABS: SQUAMOUS EPITHELIAL CELL URINE SMALL AMOUNT /hpf (SMALL AMT); WBC, URINE 15-20 /hpf (0-3)
[2022-05-05 22:51] LABS: BACTERIA, URINE SMALL AMOUNT; HYALINE CAST, URINE NONE SEEN /lpf (0-1); MUCUS, URINE SMALL AMOUNT (NEGATIVE)
== END ==
LOC: M LAB REF 22:04
PROVIDERS: ATTEND Physician Assistant Medical
DX: N39.0 Urinary tract infection, site not specified (principal)

== ENCOUNTER → 2022-05-15 | Outpatient (REF) | payer OTHER ==
[2022-05-15 18:44] LABS: GC DNA AMPLIFICATION NEGATIVE (NEGATIVE)
== END ==
LOC: M SFHCWAGY 16:48
PROVIDERS: ATTEND Specialist
DX: Z12.4 Encounter for screening for malignant neoplasm of cervix (principal); Z20.2 Contact with and (suspected) exposure to infections with a predominantly sexual mode of transmission

== ENCOUNTER → 2022-05-27 | Outpatient (REF) | payer OTHER ==
[2022-05-27 16:22] LABS: BACTERIA, URINE NONE SEEN; HYALINE CAST, URINE NONE SEEN /lpf (0-1); MUCUS, URINE LARGE AMOUNT (NEGATIVE); RBC, URINE 0-1 /hpf (0-3); SQUAMOUS EPITHELIAL CELL URINE SMALL AMOUNT /hpf (SMALL AMT); WBC, URINE 0-1 /hpf (0-3)
== END ==
LOC: M SMT 15:28
PROVIDERS: ATTEND Specialist
DX: Z87.440 Personal history of urinary (tract) infections (principal)

== ENCOUNTER → 2022-06-25 | Outpatient (CLI) | payer OTHER ==
[2022-06-25 17:30] LABS: HEMATOCRIT 42.8 % (36.0-47.0); HEMOGLOBIN 13.3 g/dl (12.0-15.5); MEAN CORPUSCULAR HGB CONC 31.1 g/dl (32.0-36.5); PLATELET COUNT, AUTOMATED 307 10^3/uL (150-450); RED BLOOD COUNT 4.92 10^6/uL (4.00-5.40); WHITE BLOOD COUNT 12.6 10^3/uL (4.0-10.0)
[2022-06-25 18:02] LABS: HCG, SERUM QUALITATIVE NEGATIVE (NEGATIVE)
[2022-06-25 18:22] LABS: ALBUMIN 3.4 GM/DL (3.2-5.2); ALT/SGPT 26 U/L (12-78); BILIRUBIN,TOTAL 0.3 MG/DL (0.2-1.0); BLOOD UREA NITROGEN 13 MG/DL (7-18); CALCIUM LEVEL 9.2 MG/DL (8.5-10.1); CARBON DIOXIDE LEVEL 27 MEQ/L (21-32); CHLORIDE LEVEL 108 MEQ/L (98-107); CHOLESTEROL LEVEL 124 MG/DL (<200); CHOLESTEROL RISK RATIO 2.137 (<5); CREATININE FOR GFR 0.72 MG/DL (0.55-1.30); FERRITIN 42 NG/ML (8-252); FREE T4 0.96 NG/DL (0.76-1.46); GLOMERULAR FILTRATION RATE > 60.0 (>60); GLUCOSE, FASTING 87 MG/DL (70-100); HDL CHOLESTEROL 58 MG/DL (>40); IRON (FE) 33 UG/DL (50-170); LDL CHOLESTEROL 54 MG/DL (<100); NON-HDL-C 66 MG/DL; PERCENT SATURATION 9.2 % (13.2-45.0); SODIUM LEVEL 139 MEQ/L (136-145); TOTAL IRON BINDING CAPACITY 358 UG/DL (250-450); TOTAL PROTEIN 7.2 GM/DL (6.4-8.2); TRIGLYCERIDES LEVEL 60 MG/DL (<150)
[2022-06-25 20:06] LABS: FOLATE 21.5 NG/ML (>5.4); TOTAL 25(OH) VITAMIN D 27.9 NG/ML (30.0-100.0); VITAMIN B12 LEVEL 264 PG/ML (247-911)
[2022-06-25 20:46] LABS: HEPATITIS C VIRUS ABY INDEX < 0.0 INDEX (<0.8)
[2022-06-25 20:54] LABS: HIV 1&2 SCREEN CENTAUR NEGATIVE (NEGATIVE)
== END ==
LOC: M LAB 15:48
PROVIDERS: ATTEND Physician Assistant
DX: N91.2 Amenorrhea, unspecified (principal); E66.01 Morbid (severe) obesity due to excess calories; K58.2 Mixed irritable bowel syndrome; I10 Essential (primary) hypertension; G62.9 Polyneuropathy, unspecified; E56.9 Vitamin deficiency, unspecified; E06.3 Autoimmune thyroiditis; E61.1 Iron deficiency; Z11.3 Encounter for screening for infections with a predominantly sexual mode of transmission; Z11.59 Encounter for screening for other viral diseases; Z11.4 Encounter for screening for human immunodeficiency virus [HIV]

== ENCOUNTER → 2022-06-25 | Outpatient (CLI) | payer OTHER ==
[2022-06-25 20:09] LABS: HEMATOCRIT 42.9 % (36.0-47.0); HEMOGLOBIN 13.3 g/dl (12.0-15.5); MEAN CORPUSCULAR HEMOGLOBIN 27.1 pg (27.0-33.0); MEAN CORPUSCULAR VOLUME 87.4 fl (80.0-96.0); PLATELET COUNT, AUTOMATED 305 10^3/uL (150-450); RED BLOOD COUNT 4.91 10^6/uL (4.00-5.40); WHITE BLOOD COUNT 12.9 10^3/uL (4.0-10.0)
[2022-06-25 22:54] LABS: BLOOD UREA NITROGEN 13 MG/DL (7-18); CALCIUM LEVEL 9.1 MG/DL (8.5-10.1); CARBON DIOXIDE LEVEL 21 MEQ/L (21-32); CHLORIDE LEVEL 111 MEQ/L (98-107); CREATININE FOR GFR 0.72 MG/DL (0.55-1.30); GLOMERULAR FILTRATION RATE > 60.0 (>60); GLUCOSE, FASTING 85 MG/DL (70-100); POTASSIUM SERUM 5.1 MEQ/L (3.5-5.1); SODIUM LEVEL 142 MEQ/L (136-145)
== END ==
LOC: M LAB 15:53
PROVIDERS: ATTEND Specialist
DX: Z01.818 Encounter for other preprocedural examination (principal); N39.44 Nocturnal enuresis

== ENCOUNTER → 2022-07-20 | Outpatient (CLI) | payer OTHER ==
[~2022-07-20] MED LIST changes: +ALBU8.5H INH; +FLUO20CA22 PO; +FLUT1INH3 INH; +GABA-282 PO; +HYDR50TA70 PO; +TOLT2TAB12 PO; +VALE500C2 PO; +VITA200032 PO
== END ==
LOC: M LABSMTC 10:26
PROVIDERS: ATTEND Anesthesiology
DX: Z01.812 Encounter for preprocedural laboratory examination (principal); Z11.52 Encounter for screening for COVID-19

== ENCOUNTER → 2022-08-30 | Outpatient (CLI) | payer OTHER ==
[~2022-08-30] MED LIST changes: +DIPH-435 PO; -DIPH25CA32 PO
[2022-08-30 16:45] LABS: BASO % 0.4 % (0.0-1.0); EOS # 0.2 10^3/uL (0.0-0.5); EOS % 2.1 % (0.0-3.0); HEMATOCRIT 40.5 % (36.0-47.0); HEMOGLOBIN 12.4 g/dl (12.0-15.5); LYMPH # 2.2 10^3/uL (1.5-5.0); LYMPH % 23.9 % (24.0-44.0); MEAN CORPUSCULAR HEMOGLOBIN 26.4 pg (27.0-33.0); MEAN CORPUSCULAR HGB CONC 30.6 g/dl (32.0-36.5); MEAN CORPUSCULAR VOLUME 86.2 fl (80.0-96.0); MONO # 0.4 10^3/uL (0.0-0.8); MONO % 3.9 % (2.0-8.0); NEUTROPHILS # 6.5 10^3/uL (1.5-8.5); NEUTROPHILS % 69.4 % (36.0-66.0); PLATELET COUNT, AUTOMATED 246 10^3/uL (150-450); WHITE BLOOD COUNT 9.3 10^3/uL (4.0-10.0)
[2022-08-30 17:13] LABS: ALBUMIN 3.2 G/DL (3.2-5.2); ALKALINE PHOSPHATASE 91 U/L (46-116); ALT/SGPT 21 U/L (7.0-40); AST/SGOT 21 U/L (<34); BILIRUBIN,TOTAL 0.2 MG/DL (0.3-1.2); BLOOD UREA NITROGEN 14 MG/DL (9-23); CALCIUM LEVEL 8.6 MG/DL (8.5-10.1); CARBON DIOXIDE LEVEL 31 MMOL/L (20-31); CHLORIDE LEVEL 106 MMOL/L (98-107); CREATININE FOR GFR 0.68 MG/DL (0.55-1.30); GLOMERULAR FILTRATION RATE > 60.0 (>60); GLUCOSE, FASTING 82 MG/DL (60-100); POTASSIUM SERUM 4.2 MMOL/L (3.5-5.1); SODIUM LEVEL 141 MMOL/L (136-145); TOTAL PROTEIN 6.4 G/DL (5.7-8.2)
[2022-08-30 17:15] LABS: FREE T4 1.02 NG/DL (0.89-1.76); THYROID STIMULATING HORMONE 1.831 uIU/ML (0.55-4.78)
== END ==
LOC: M LAB 16:16
PROVIDERS: ATTEND Physician Assistant
DX: L65.9 Nonscarring hair loss, unspecified (principal); R11.0 Nausea; R42 Dizziness and giddiness

== ENCOUNTER → 2022-09-05 | Outpatient (REF) | payer OTHER ==
[~2022-09-05] MED LIST changes: +CEFD300C41; +SPIR-10; +TRAZ-252 PO
[2022-09-05 20:30] LABS: APPEARANCE, URINE MANUAL CLOUDY (CLEAR); BILIRUBIN, URINE MANUAL NEGATIVE (NEGATIVE); BLOOD URINE MANUAL POSITIVE (NEGATIVE); COLOR, URINE MANUAL LT YELLOW (YELLOW); GLUCOSE, URINE (UA) MANUAL NEGATIVE (NEGATIVE); KETONE, URINE MANUAL NEGATIVE (NEGATIVE); LEUKOCYTE ESTERASE, URINE MAN POSITIVE (NEGATIVE); NITRITE, URINE MANUAL POSITIVE (NEGATIVE); PH,URINE MAN 7.5 UNITS (5.0 - 7.0); PROTEIN, URINE MANUAL NEGATIVE (NEGATIVE); SPECIFIC GRAVITY,URINE MANUAL 1.005 (1.002-1.035); UROBILINOGEN, URINE MANUAL NORMAL (NORMAL)
[2022-09-05 20:41] LABS: RBC, URINE 0-1 /hpf (0-3); SQUAMOUS EPITHELIAL CELL URINE SMALL AMOUNT /hpf (SMALL AMT); WBC, URINE TNTC /hpf (0-3)
[2022-09-05 20:42] LABS: BACTERIA, URINE LARGE AMOUNT; HYALINE CAST, URINE NONE SEEN /lpf (0-1)
== END ==
LOC: M LAB REF 20:17
PROVIDERS: ATTEND Physician Assistant Medical
DX: N39.0 Urinary tract infection, site not specified (principal)

== ENCOUNTER → 2022-09-11 | Outpatient (REF) | payer OTHER ==
[2022-09-11 17:56] LABS: APPEARANCE, URINE MANUAL CLOUDY (CLEAR); COLOR, URINE MANUAL YELLOW (YELLOW); PROTEIN, URINE MANUAL NEGATIVE (NEGATIVE); SPECIFIC GRAVITY,URINE MANUAL 1.025 (1.002-1.035)
[2022-09-11 17:57] LABS: BILIRUBIN, URINE MANUAL NEGATIVE (NEGATIVE); BLOOD URINE MANUAL NEGATIVE (NEGATIVE); GLUCOSE, URINE (UA) MANUAL NEGATIVE (NEGATIVE); KETONE, URINE MANUAL NEGATIVE (NEGATIVE); LEUKOCYTE ESTERASE, URINE MAN NEGATIVE (NEGATIVE); NITRITE, URINE MANUAL NEGATIVE (NEGATIVE); UROBILINOGEN, URINE MANUAL NORMAL (NORMAL)
[2022-09-11 19:57] LABS: AMORPHOUS SEDIMENT, URINE LARGE AMOUNT (NEGATIVE)
[2022-09-11 19:58] LABS: BACTERIA, URINE NONE SEEN; HYALINE CAST, URINE NONE SEEN /lpf (0-1); RBC, URINE NONE SEEN /hpf (0-3); SQUAMOUS EPITHELIAL CELL URINE SMALL AMOUNT /hpf (SMALL AMT); WBC, URINE 0-1 /hpf (0-3)
== END ==
LOC: M SMT 17:01
PROVIDERS: ATTEND Nurse Practitioner Women's Health
DX: N39.44 Nocturnal enuresis (principal); R39.15 Urgency of urination; Z01.818 Encounter for other preprocedural examination

== ENCOUNTER → 2022-09-11 | Outpatient (CLI) | payer OTHER ==
[2022-09-11 13:34] LABS: HEMATOCRIT 41.9 % (36.0-47.0); HEMOGLOBIN 12.4 g/dl (12.0-15.5); MEAN CORPUSCULAR HEMOGLOBIN 26.1 pg (27.0-33.0); MEAN CORPUSCULAR HGB CONC 29.6 g/dl (32.0-36.5); MEAN CORPUSCULAR VOLUME 88.2 fl (80.0-96.0); PLATELET COUNT, AUTOMATED 267 10^3/uL (150-450); RED BLOOD COUNT 4.75 10^6/uL (4.00-5.40)
[2022-09-11 13:43] LABS: INR 1.02; PROTHROMBIN TIME 13.6 SECONDS (12.5-14.5)
[2022-09-11 13:44] LABS: PARTIAL THROMBOPLASTIN TIME 30.6 SECONDS (24.8-34.2)
[2022-09-11 13:55] LABS: BLOOD UREA NITROGEN 14 MG/DL (9-23); CALCIUM LEVEL 8.4 MG/DL (8.5-10.1); CARBON DIOXIDE LEVEL 29 MMOL/L (20-31); CHLORIDE LEVEL 108 MMOL/L (98-107); CREATININE FOR GFR 0.71 MG/DL (0.55-1.30); GLOMERULAR FILTRATION RATE > 60.0 (>60); GLUCOSE, FASTING 82 MG/DL (60-100); POTASSIUM SERUM 4.5 MMOL/L (3.5-5.1); SODIUM LEVEL 140 MMOL/L (136-145)
== END ==
LOC: M LAB 12:43
PROVIDERS: ATTEND Nurse Practitioner Women's Health
DX: Z01.818 Encounter for other preprocedural examination (principal); N39.44 Nocturnal enuresis; R39.15 Urgency of urination

== ENCOUNTER → 2022-09-11 | Outpatient (CLI) | payer OTHER ==
[2022-09-11 13:59] LABS: THYROID STIMULATING HORMONE 2.848 uIU/ML (0.55-4.78)
[2022-09-11 14:00] LABS: FREE T4 0.95 NG/DL (0.89-1.76)
== END ==
LOC: M LAB 12:40
PROVIDERS: ATTEND Physician Assistant
DX: L65.9 Nonscarring hair loss, unspecified (principal)

== ENCOUNTER → 2022-09-14 | Outpatient (CLI) | payer OTHER | LOC: M LABSMTC 11:55 | PROVIDERS: ATTEND Anesthesiology | DX: Z01.812 Encounter for preprocedural laboratory examination (principal); Z11.52 Encounter for screening for COVID-19 ==

== ENCOUNTER 2022-09-18 09:42 | Day surgery (SDC) | payer OTHER ==
[~2022-09-18] VITALS: Ht 175.3 cm; Wt 165.3 kg
[2022-09-18] MEDS ORDERED: LR 1,000 ML IV SCH ×2 (10:20→13:15)
[2022-09-18] MEDS ORDERED: ceFAZolin SOD 2 GM in IV 1 EA IV ONE (10:45)
[2022-09-18] MEDS ORDERED: ceFAZolin SOD 1 GM in D5W MINI-BAG PLUS 50 ML IV ONE (10:45)
[2022-09-18] MEDS ORDERED: LIDOCAINE 2% 5ML JELLY UROJET As Ordered ONE (11:02)
[2022-09-18] MEDS ORDERED: BOTOX THERAPEUTIC 100 UNIT VIAL As Ordered ONE (11:03)
[2022-09-18] MEDS ORDERED: LIDOCAINE 2% 100MG/5ML SDV (FOR ANES.) As Ordered ONE (11:31)
[2022-09-18] MEDS ORDERED: propofoL 200 MG/20 ML VIAL As Ordered ONE (11:31)
[2022-09-18] MEDS ORDERED: ACETAMINOPHEN 1000MG 100ML IV BAG As Ordered ONE (11:31)
[2022-09-18] MEDS ORDERED: ONDANSETRON 4MG 2ML VIAL As Ordered ONE (11:31)
[2022-09-18] MEDS ORDERED: MIDAZOLAM INJ 2MG/2ML VIAL As Ordered ONE (11:32)
[2022-09-18] MEDS ORDERED: fentaNYL 100 MCG/2 ML INJECTION As Ordered ONE (11:32)
[2022-09-18] MEDS ORDERED: HYDROMORPHONE HCL 0.5 MG/ 0.5 ML SYRINGE IV PRN (13:15)
[2022-09-18] MEDS ORDERED: oxyCODONE 5MG TAB PO PRN (13:15)
[2022-09-18] MEDS ORDERED: ONDANSETRON 4MG 2ML VIAL IV PRN (13:15)
[2022-09-18] MEDS ORDERED: fentaNYL 100 MCG/2 ML INJECTION IV PRN (13:15)
[2022-09-18] MEDS ORDERED: ACETAMINOPHEN TAB 650MG DOSE (2X325MG) PO PRN (13:25)
[2022-09-18 14:52] VITALS: BP 116/67
== END 2022-09-18 14:58 | disposition home or self-care (01) ==
LOC: M SDC 09:42
PROVIDERS: ATTEND Urology
DX: N32.81 Overactive bladder (principal); N39.41 Urge incontinence; R35.0 Frequency of micturition; N39.0 Urinary tract infection, site not specified; E03.9 Hypothyroidism, unspecified; E06.3 Autoimmune thyroiditis; K21.9 Gastro-esophageal reflux disease without esophagitis; E28.2 Polycystic ovarian syndrome; M51.9 Unspecified thoracic, thoracolumbar and lumbosacral intervertebral disc disorder; F41.9 Anxiety disorder, unspecified; F32.A Depression, unspecified; F43.10 Post-traumatic stress disorder, unspecified; Z87.442 Personal history of urinary calculi; Z91.040 Latex allergy status; Z88.2 Allergy status to sulfonamides; Z91.048 Other nonmedicinal substance allergy status; Z79.899 Other long term (current) drug therapy
CPT/HCPCS: 52287; J0585; J1100; J2405

== ENCOUNTER → 2022-09-30 | Outpatient (REF) | payer OTHER ==
[~2022-09-30] MED LIST changes: -DESM0.2T10; -DESM0.2T10 PO; +DESM0.2T22; +DESM0.2T22 PO; +MONT-5 PO; -SING10TA32 PO
[2022-09-30 19:16] LABS: APPEARANCE, URINE MANUAL CLOUDY (CLEAR); COLOR, URINE MANUAL LT YELLOW (YELLOW)
[2022-09-30 19:17] LABS: BILIRUBIN, URINE MANUAL NEGATIVE (NEGATIVE); BLOOD URINE MANUAL POSITIVE (NEGATIVE); GLUCOSE, URINE (UA) MANUAL NEGATIVE (NEGATIVE); KETONE, URINE MANUAL NEGATIVE (NEGATIVE); LEUKOCYTE ESTERASE, URINE MAN POSITIVE (NEGATIVE); NITRITE, URINE MANUAL NEGATIVE (NEGATIVE); PROTEIN, URINE MANUAL 2+ mg/dL (NEGATIVE); UROBILINOGEN, URINE MANUAL NORMAL (NORMAL)
[2022-09-30 20:15] LABS: SQUAMOUS EPITHELIAL CELL URINE SMALL AMOUNT /hpf (SMALL AMT); WBC, URINE TNTC /hpf (0-3)
[2022-09-30 20:16] LABS: BACTERIA, URINE MOD AMOUNT
[2022-09-30 20:17] LABS: HYALINE CAST, URINE NONE SEEN /lpf (0-1)
== END ==
LOC: M SMT 17:01
PROVIDERS: ATTEND Specialist
DX: R30.0 Dysuria (principal)

== ENCOUNTER → 2022-10-21 | Outpatient (CLI) | payer OTHER | LOC: M RAD 09:04 | PROVIDERS: ATTEND Specialist | DX: R31.29 Other microscopic hematuria (principal) ==

== ENCOUNTER → 2022-10-28 | Outpatient (REF) | payer OTHER | LOC: M LAB REF 17:11 | PROVIDERS: ATTEND Otolaryngology | DX: B37.9 Candidiasis, unspecified (principal) ==

== ENCOUNTER → 2022-10-28 | Outpatient (REF) | payer OTHER ==
[2022-10-28 19:15] LABS: APPEARANCE, URINE CLEAR (CLEAR); BACTERIA, URINE AUTO NEGATIVE (NEGATIVE); BILIRUBIN, URINE AUTO NEGATIVE (NEGATIVE); BLOOD, URINE BLOOD NEGATIVE (NEGATIVE); COLOR, URINE YELLOW (YELLOW); GLUCOSE, URINE (UA) AUTO NEGATIVE (NEGATIVE); KETONE, URINE AUTO NEGATIVE (NEGATIVE); LEUKOCYTE ESTERASE, URINE AUTO NEGATIVE (NEGATIVE); MUCUS, URINE SMALL (NEGATIVE); NITRITE, URINE AUTO NEGATIVE (NEGATIVE); PROTEIN, URINE AUTO NEGATIVE (NEGATIVE); RBC, URINE AUTO 0 /HPF (0-3); SPECIFIC GRAVITY URINE AUTO 1.021 (1.002-1.035); SQUAMOUS EPITHELIAL CELL UR AU 0 /HPF (0-6); UROBILINOGEN, URINE AUTO 0.2 mg/dL (0.0-2.0); WBC, URINE AUTO 1 /HPF (0-3)
== END ==
LOC: M SMT 16:39
PROVIDERS: ATTEND Specialist
DX: Z87.440 Personal history of urinary (tract) infections (principal)

== ENCOUNTER → 2022-11-13 | Outpatient (REF) | payer OTHER ==
[2022-11-13 20:32] LABS: APPEARANCE, URINE HAZY (CLEAR); BACTERIA, URINE AUTO NEGATIVE (NEGATIVE); BILIRUBIN, URINE AUTO NEGATIVE (NEGATIVE); BLOOD, URINE BLOOD NEGATIVE (NEGATIVE); COLOR, URINE YELLOW (YELLOW); GLUCOSE, URINE (UA) AUTO NEGATIVE (NEGATIVE); KETONE, URINE AUTO NEGATIVE (NEGATIVE); LEUKOCYTE ESTERASE, URINE AUTO 3+ (NEGATIVE); MUCUS, URINE SMALL (NEGATIVE); NITRITE, URINE AUTO NEGATIVE (NEGATIVE); PROTEIN, URINE AUTO NEGATIVE (NEGATIVE); RBC, URINE AUTO 1 /HPF (0-3); SPECIFIC GRAVITY URINE AUTO 1.021 (1.002-1.035); SQUAMOUS EPITHELIAL CELL UR AU 0 /HPF (0-6); UROBILINOGEN, URINE AUTO 0.2 mg/dL (0.0-2.0); WBC, URINE AUTO 111 /HPF (0-3)
== END ==
LOC: M LAB REF 20:05 → M SMT 20:05
PROVIDERS: ATTEND Specialist
DX: R30.0 Dysuria (principal)

== ENCOUNTER → 2023-01-20 | Outpatient (REF) | payer OTHER ==
[~2023-01-20] MED LIST changes: +FLUT50SP17 INH; -FLUTISP INH
[2023-01-20 18:18] LABS: APPEARANCE, URINE CLOUDY (CLEAR); BACTERIA, URINE AUTO 3+ (NEGATIVE); BILIRUBIN, URINE AUTO NEGATIVE (NEGATIVE); BLOOD, URINE BLOOD NEGATIVE (NEGATIVE); COLOR, URINE YELLOW (YELLOW); GLUCOSE, URINE (UA) AUTO NEGATIVE (NEGATIVE); KETONE, URINE AUTO NEGATIVE (NEGATIVE); LEUKOCYTE ESTERASE, URINE AUTO 3+ (NEGATIVE); MUCUS, URINE SMALL (NEGATIVE); NITRITE, URINE AUTO POSITIVE (NEGATIVE); PROTEIN, URINE AUTO 1+ mg/dL (NEGATIVE); RBC, URINE AUTO 0 /HPF (0-3); SPECIFIC GRAVITY URINE AUTO 1.019 (1.002-1.035); SQUAMOUS EPITHELIAL CELL UR AU 0 /HPF (0-6); UROBILINOGEN, URINE AUTO 0.2 mg/dL (0.0-2.0); WBC, URINE AUTO TNTC /HPF (0-3)
== END ==
LOC: M SMT 17:05
PROVIDERS: ATTEND Physician Assistant
DX: R30.0 Dysuria (principal)

== ENCOUNTER 2023-03-31 18:02 | Emergency (ER) | payer OTHER ==
[~2023-03-31] VITALS: Ht 175.3 cm; Wt 169.0 kg
[~2023-03-31 18:02] MED LIST changes: +ACET50CA PO; +ADDE10CA3 PO; -SPIR-10
[2023-03-31 18:04] VITALS: BP 144/93; TEMP 99.2; O2SAT 96
[2023-03-31] MEDS ORDERED: DESM0.2T22 PO (18:29)
== END 2023-03-31 22:41 | disposition left against medical advice (07) ==
LOC: M ED 18:02
DX: Z53.21 Procedure and treatment not carried out due to patient leaving prior to being seen by health care provider (principal)

== ENCOUNTER → 2023-04-07 | Outpatient (CLI) | payer OTHER ==
[~2023-04-07] MED LIST changes: +METHACHOLINE KIT INH ONE
== END ==
LOC: M CARPUL 14:52
PROVIDERS: ATTEND Nurse Practitioner Family
DX: R06.02 Shortness of breath (principal)

== ENCOUNTER → 2023-04-09 | Outpatient (CLI) | payer OTHER | LOC: M CARPUL 11:12 | PROVIDERS: ATTEND Nurse Practitioner Family | DX: R06.02 Shortness of breath (principal) | CPT/HCPCS: 94070; 95070; J7674 ==

== ENCOUNTER → 2023-04-10 | Outpatient (REF) | payer OTHER ==
[~2023-04-10] MED LIST changes: -METHACHOLINE KIT INH ONE
[2023-04-10 18:14] LABS: URINE PREG TEST NEGATIVE (NEGATIVE)
[2023-04-10 19:12] LABS: APPEARANCE, URINE CLEAR (CLEAR); BACTERIA, URINE AUTO NEGATIVE (NEGATIVE); BILIRUBIN, URINE AUTO NEGATIVE (NEGATIVE); BLOOD, URINE BLOOD NEGATIVE (NEGATIVE); COLOR, URINE STRAW (YELLOW); GLUCOSE, URINE (UA) AUTO NEGATIVE (NEGATIVE); KETONE, URINE AUTO NEGATIVE (NEGATIVE); LEUKOCYTE ESTERASE, URINE AUTO NEGATIVE (NEGATIVE); NITRITE, URINE AUTO NEGATIVE (NEGATIVE); PROTEIN, URINE AUTO NEGATIVE (NEGATIVE); RBC, URINE AUTO 0 /HPF (0-3); SPECIFIC GRAVITY URINE AUTO 1.012 (1.002-1.035); SQUAMOUS EPITHELIAL CELL UR AU 0 /HPF (0-6); UROBILINOGEN, URINE AUTO 0.2 mg/dL (0.0-2.0); WBC, URINE AUTO 0 /HPF (0-3)
== END ==
LOC: M SMT 17:06
PROVIDERS: ATTEND Urology
DX: Z01.818 Encounter for other preprocedural examination (principal); R39.15 Urgency of urination

== ENCOUNTER 2023-04-15 06:05 | Day surgery (SDC) | payer OTHER ==
[~2023-04-15] VITALS: Ht 175.3 cm; Wt 166.1 kg
[2023-04-15] MEDS ORDERED: LR 1,000 ML IV SCH (06:15)
[2023-04-15] MEDS ORDERED: ceFAZolin SOD 1 GM in D5W MINI-BAG PLUS 50 ML IV ONE (07:00)
[2023-04-15] MEDS ORDERED: ceFAZolin SOD 2 GM in IV 1 EA IV ONE (07:00)
[2023-04-15] MEDS ORDERED: ONDANSETRON 4MG 2ML VIAL As Ordered ONE (07:18)
[2023-04-15] MEDS ORDERED: SUCCINYLCHOLINE 100MG/5ML SYRINGE As Ordered ONE (07:18)
[2023-04-15] MEDS ORDERED: LIDOCAINE 2% 100MG/5ML SDV (FOR ANES.) As Ordered ONE (07:18)
[2023-04-15] MEDS ORDERED: propofoL 200 MG/20 ML VIAL As Ordered ONE (07:18)
[2023-04-15] MEDS ORDERED: fentaNYL 100 MCG/2 ML INJECTION As Ordered ONE (07:19)
[2023-04-15] MEDS ORDERED: MIDAZOLAM INJ 2MG/2ML VIAL As Ordered ONE (07:19)
[2023-04-15] MEDS ORDERED: ROCURONIUM BROMIDE 50MG/5ML VIAL As Ordered ONE (07:26)
[2023-04-15] MEDS ORDERED: LIDOCAINE 2% 5ML JELLY UROJET As Ordered ONE (07:37)
[2023-04-15] MEDS ORDERED: BOTOX THERAPEUTIC 100 UNIT VIAL As Ordered ONE (07:38)
[2023-04-15] MEDS ORDERED: propofoL 500 MG/50 ML VIAL As Ordered ONE (07:39)
[2023-04-15] MEDS ORDERED: ACETAMINOPHEN 1000MG 100ML IV BAG As Ordered ONE (08:05)
[2023-04-15] MEDS ORDERED: HYDROMORPHONE HCL 0.5 MG/ 0.5 ML SYRINGE IV PRN (08:25)
[2023-04-15] MEDS ORDERED: oxyCODONE 5MG TAB PO PRN (08:25)
[2023-04-15] MEDS ORDERED: fentaNYL 100 MCG/2 ML INJECTION IV PRN (08:25)
[2023-04-15] MEDS ORDERED: ONDANSETRON 4MG 2ML VIAL IV PRN (08:25)
[2023-04-15] MEDS ORDERED: MEPERIDINE 25 MG/ML 1ML VIAL IV PRN (08:25)
[2023-04-15] MEDS ORDERED: flumazeniL 0.5MG/5ML VIAL As Ordered ONE (08:41)
[2023-04-15] MEDS ORDERED: IPRATROPIUM 0.5MG/ALBUTEROL 2.5MG INH SOL UD 3ML (DUONEB) NEB PRN (08:45)
[2023-04-15] MEDS: IPRATROPIUM 0.5MG/ALBUTEROL 2.5MG INH SOL UD 3ML (DUONEB) NEB SCH ×2 (08:54→14:00)
[2023-04-15] MEDS ORDERED: ACETAMINOPHEN TAB 650MG DOSE (2X325MG) PO PRN (09:30)
[2023-04-15 09:38] VITALS: BP 128/78; TEMP 97.2; O2SAT 98
== END 2023-04-15 10:09 | disposition home or self-care (01) ==
LOC: M SDC 06:05
PROVIDERS: ATTEND Urology
DX: N32.81 Overactive bladder (principal); G47.30 Sleep apnea, unspecified; Z72.0 Tobacco use; Z79.51 Long term (current) use of inhaled steroids; Z79.899 Other long term (current) drug therapy; Z88.1 Allergy status to other antibiotic agents; Z88.2 Allergy status to sulfonamides; Z91.040 Latex allergy status; Z91.048 Other nonmedicinal substance allergy status
CPT/HCPCS: 52287; J0131; J0330; J0585; J0690; J1100; J2250; J2405; J3010

== ENCOUNTER → 2023-04-17 | Outpatient (CLI) | payer OTHER | LOC: M RAD 16:30 | PROVIDERS: ATTEND Nurse Practitioner Family | DX: R06.02 Shortness of breath (principal) ==

== ENCOUNTER → 2023-04-28 | Outpatient (REF) | payer OTHER | LOC: M SMT 16:47 | PROVIDERS: ATTEND Physician Assistant | DX: R30.0 Dysuria (principal) ==

== ENCOUNTER → 2023-05-12 | Outpatient (REF) | payer OTHER ==
[2023-05-12 19:42] LABS: HCG, SERUM QUALITATIVE NEGATIVE (NEGATIVE)
[2023-05-12 19:46] LABS: THYROID STIMULATING HORMONE 1.449 uIU/ML (0.55-4.78)
== END ==
LOC: M LAB REF 17:23
PROVIDERS: ATTEND Nurse Practitioner Family
DX: R63.0 Anorexia (principal)

== ENCOUNTER → 2023-06-09 | Outpatient (CLI) | payer OTHER ==
[~2023-06-09] MED LIST changes: -CEFD300C41; +CEFD300C42; -OXYB5TAB10 PO; +OXYB5TAB11 PO
[2023-06-09 13:58] VITALS: TEMP 97
[2023-06-09 15:29] LABS: APPEARANCE, CSF CLEAR (CLEAR); COLOR, CSF COLORLESS (COLORLESS); CSF TUBE# CELL CNT TUBE 1
[2023-06-09 15:51] LABS: CSF TUBE# TP TUBE 1; TOTAL PROTEIN,CSF 33.5 MG/DL (15-45)
[2023-06-09 15:54] LABS: CSF TUBE# GLU TUBE 1
[2023-06-09 16:39] VITALS: BP 131/71; O2SAT 99
== END ==
LOC: M IRPRO 13:50
PROVIDERS: ATTEND Psychiatry & Neurology Neurology
DX: G93.2 Benign intracranial hypertension (principal)

== ENCOUNTER → 2023-07-15 | Outpatient (REF) | payer OTHER | LOC: M LAB REF 19:45 | PROVIDERS: ATTEND Student in an Organized Health Care Education/Training Program | DX: R30.0 Dysuria (principal) ==

== ENCOUNTER → 2023-07-30 | Outpatient (CLI) | payer OTHER ==
[~2023-07-30] MED LIST changes: +CEFD1CAP9; -CEFD300C42; -FLUT50SP17 INH; +FLUTISP INH
[2023-07-30 18:38] LABS: BASO # 0.1 10^3/uL (0.0-0.2); BASO % 0.4 % (0.0-1.0); EOS # 0.3 10^3/uL (0.0-0.5); EOS % 2.4 % (0.0-3.0); HEMATOCRIT 42.6 % (36.0-47.0); HEMOGLOBIN 13.4 g/dl (12.0-15.5); LYMPH # 2.6 10^3/uL (1.5-5.0); LYMPH % 22.6 % (24.0-44.0); MEAN CORPUSCULAR HEMOGLOBIN 27.3 pg (27.0-33.0); MEAN CORPUSCULAR HGB CONC 31.5 g/dl (32.0-36.5); MEAN CORPUSCULAR VOLUME 86.8 fl (80.0-96.0); MONO # 0.6 10^3/uL (0.0-0.8); MONO % 4.9 % (2.0-8.0); NEUTROPHILS # 7.9 10^3/uL (1.5-8.5); NEUTROPHILS % 69.1 % (36.0-66.0); PLATELET COUNT, AUTOMATED 277 10^3/uL (150-450); RED BLOOD COUNT 4.91 10^6/uL (4.00-5.40); WHITE BLOOD COUNT 11.5 10^3/uL (4.0-10.0)
[2023-07-30 19:07] LABS: ALBUMIN 3.4 G/DL (3.2-5.2); ALKALINE PHOSPHATASE 88 U/L (46-116); ALT/SGPT 22 U/L (7.0-40); AST/SGOT 13 U/L (<34); BILIRUBIN,TOTAL 0.3 MG/DL (0.3-1.2); BLOOD UREA NITROGEN 10 MG/DL (9-23); CARBON DIOXIDE LEVEL 29 MMOL/L (20-31); CHLORIDE LEVEL 109 MMOL/L (98-107); CHOLESTEROL LEVEL 133 MG/DL (<200); CHOLESTEROL RISK RATIO 2.42 (<5); CREATININE FOR GFR 0.58 MG/DL (0.55-1.30); FERRITIN 39.7 NG/ML (7.3-270.7); GLOMERULAR FILTRATION RATE > 60.0 (>60); GLUCOSE, FASTING 73 MG/DL (60-100); HDL CHOLESTEROL 54.9 MG/DL (>40); IRON (FE) 33 UG/DL (50-170); LDL CHOLESTEROL 58.9 MG/DL (<100); NON-HDL-C 78.1 MG/DL; PERCENT SATURATION 10.6 % (13.2-45.0); POTASSIUM SERUM 3.4 MMOL/L (3.5-5.1); SODIUM LEVEL 144 MMOL/L (136-145); TOTAL IRON BINDING CAPACITY 311 UG/DL (250-425); TOTAL PROTEIN 6.7 G/DL (5.7-8.2); TRIGLYCERIDES LEVEL 96 MG/DL (<150)
[2023-07-30 19:09] LABS: TOTAL 25(OH) VITAMIN D 25.2 NG/ML (20.0-100.0)
== END ==
LOC: M LAB 17:18
PROVIDERS: ATTEND Specialist
DX: E06.3 Autoimmune thyroiditis (principal); I10 Essential (primary) hypertension; R00.0 Tachycardia, unspecified; I35.1 Nonrheumatic aortic (valve) insufficiency; E61.1 Iron deficiency; E55.9 Vitamin D deficiency, unspecified

== ENCOUNTER → 2023-10-28 | Outpatient (REF) | payer OTHER ==
[~2023-10-28] MED LIST changes: -OXYB5TAB11 PO; +OXYB5TAB14 PO
[2023-10-28 17:31] LABS: AMORPHOUS SEDIMENT SMALL (NEGATIVE); APPEARANCE, URINE CLOUDY (CLEAR); BACTERIA, URINE AUTO NEGATIVE (NEGATIVE); BILIRUBIN, URINE AUTO NEGATIVE (NEGATIVE); BLOOD, URINE BLOOD NEGATIVE (NEGATIVE); COLOR, URINE YELLOW (YELLOW); GLUCOSE, URINE (UA) AUTO NEGATIVE (NEGATIVE); KETONE, URINE AUTO NEGATIVE (NEGATIVE); LEUKOCYTE ESTERASE, URINE AUTO NEGATIVE (NEGATIVE); NITRITE, URINE AUTO NEGATIVE (NEGATIVE); PROTEIN, URINE AUTO NEGATIVE (NEGATIVE); RBC, URINE AUTO 0 /HPF (0-3); SPECIFIC GRAVITY URINE AUTO 1.016 (1.002-1.035); SQUAMOUS EPITHELIAL CELL UR AU 1 /HPF (0-6); UROBILINOGEN, URINE AUTO 0.2 mg/dL (0.0-2.0); WBC, URINE AUTO 2 /HPF (0-3)
== END ==
LOC: M SMT 16:53
PROVIDERS: ATTEND Physician Assistant
DX: R30.0 Dysuria (principal)

== ENCOUNTER → 2023-11-18 | Outpatient (CLI) | payer OTHER | LOC: M RAD 10:19 | PROVIDERS: ATTEND Physician Assistant | DX: R30.0 Dysuria (principal) ==

== ENCOUNTER → 2023-12-01 | Outpatient (CLI) | payer OTHER | LOC: M PLAIMG 14:38 | PROVIDERS: ATTEND Physician Assistant | DX: J32.0 Chronic maxillary sinusitis (principal) ==

== ENCOUNTER → 2024-01-27 | Outpatient (CLI) | payer OTHER ==
[~2024-01-27] MED LIST changes: +FLUO-365; +FLUO-365 PO; -FLUO20CA22; -FLUO20CA22 PO
[2024-01-27 19:08] LABS: HEMATOCRIT 44.6 % (36.0-47.0); MEAN CORPUSCULAR HEMOGLOBIN 26.5 pg (27.0-33.0); MEAN CORPUSCULAR HGB CONC 31.4 g/dl (32.0-36.5); MEAN CORPUSCULAR VOLUME 84.3 fl (80.0-96.0); PLATELET COUNT, AUTOMATED 306 10^3/uL (150-450); RED BLOOD COUNT 5.29 10^6/uL (4.00-5.40); WHITE BLOOD COUNT 11.2 10^3/uL (4.0-10.0)
[2024-01-27 19:19] LABS: ALBUMIN 3.5 G/DL (3.2-5.2); ALKALINE PHOSPHATASE 96 U/L (46-116); ALT/SGPT 33 U/L (7.0-40); AST/SGOT 15 U/L (<34); BILIRUBIN,TOTAL 0.4 MG/DL (0.3-1.2); BLOOD UREA NITROGEN 14 MG/DL (9-23); CALCIUM LEVEL 8.9 MG/DL (8.5-10.1); CARBON DIOXIDE LEVEL 21 MMOL/L (20-31); CHLORIDE LEVEL 109 MMOL/L (98-107); CREATININE FOR GFR 0.71 MG/DL (0.55-1.30); FREE T4 0.96 NG/DL (0.89-1.76); GLOMERULAR FILTRATION RATE > 60.0 (>60); GLUCOSE, FASTING 123 MG/DL (60-100); PROGESTERONE 7.03 NG/ML; SODIUM LEVEL 137 MMOL/L (136-145); THYROID PEROXIDASE ANTIBODY 36 U/ML (<60.0); TOTAL PROTEIN 6.8 G/DL (5.7-8.2); VITAMIN B12 LEVEL 523 PG/ML (211-911)
[2024-01-27 19:20] LABS: FOLLICLE STIMULATING HORMONE 2.5 mIU/ML; LUTEINIZING HORMONE 5.3 mIU/ML; THYROID STIMULATING HORMONE 3.237 uIU/ML (0.55-4.78)
[2024-01-27 19:21] LABS: ESTRADIOL 130.2 PG/ML; TESTOSTERONE 41 NG/DL (14-76)
[2024-01-27 19:25] LABS: PROLACTIN 17.26 NG/ML
== END ==
LOC: M WUC 15:08
PROVIDERS: ATTEND Specialist
DX: N92.6 Irregular menstruation, unspecified (principal)

== ENCOUNTER → 2024-03-01 | Outpatient (REF) | payer OTHER ==
[2024-03-01 18:15] LABS: APPEARANCE, URINE HAZY (CLEAR); BACTERIA, URINE AUTO NEGATIVE (NEGATIVE); BILIRUBIN, URINE AUTO NEGATIVE (NEGATIVE); BLOOD, URINE BLOOD 1+ (NEGATIVE); COLOR, URINE YELLOW (YELLOW); GLUCOSE, URINE (UA) AUTO NEGATIVE (NEGATIVE); KETONE, URINE AUTO NEGATIVE (NEGATIVE); LEUKOCYTE ESTERASE, URINE AUTO NEGATIVE (NEGATIVE); NITRITE, URINE AUTO NEGATIVE (NEGATIVE); PROTEIN, URINE AUTO NEGATIVE (NEGATIVE); RBC, URINE AUTO 5 /HPF (0-3); SPECIFIC GRAVITY URINE AUTO 1.017 (1.002-1.035); SQUAMOUS EPITHELIAL CELL UR AU 0 /HPF (0-6); UROBILINOGEN, URINE AUTO 0.2 mg/dL (0.0-2.0); WBC, URINE AUTO 1 /HPF (0-3)
== END ==
LOC: M SMT 17:25
PROVIDERS: ATTEND Physician Assistant
DX: R10.9 Unspecified abdominal pain (principal)

== ENCOUNTER → 2024-03-22 | Outpatient (REF) | payer OTHER ==
[~2024-03-22] MED LIST changes: +FERR325T81 PO; +MAGN200T PO; +PENT10CA PO; +TOPI1CAP10 PO; +VIBE75TA PO; +VITA100093 PO
[2024-03-22 18:22] LABS: APPEARANCE, URINE HAZY (CLEAR); BACTERIA, URINE AUTO NEGATIVE (NEGATIVE); BILIRUBIN, URINE AUTO NEGATIVE (NEGATIVE); BLOOD, URINE BLOOD 2+ (NEGATIVE); COLOR, URINE STRAW (YELLOW); GLUCOSE, URINE (UA) AUTO NEGATIVE (NEGATIVE); KETONE, URINE AUTO NEGATIVE (NEGATIVE); LEUKOCYTE ESTERASE, URINE AUTO NEGATIVE (NEGATIVE); NITRITE, URINE AUTO NEGATIVE (NEGATIVE); PROTEIN, URINE AUTO NEGATIVE (NEGATIVE); RBC, URINE AUTO 31 /HPF (0-3); SPECIFIC GRAVITY URINE AUTO 1.009 (1.002-1.035); SQUAMOUS EPITHELIAL CELL UR AU 4 /HPF (0-6); UROBILINOGEN, URINE AUTO 0.2 mg/dL (0.0-2.0); WBC, URINE AUTO 2 /HPF (0-3)
== END ==
LOC: M SMT 17:59
PROVIDERS: ATTEND Specialist
DX: Z01.818 Encounter for other preprocedural examination (principal)

== ENCOUNTER → 2024-04-08 | Outpatient (REF) | payer OTHER ==
[~2024-04-08] MED LIST changes: -FERR325T81 PO; -MAGN200T PO; -PENT10CA PO; -TOPI1CAP10 PO; -VIBE75TA PO; -VITA100093 PO
[2024-04-08 18:36] LABS: APPEARANCE, URINE CLEAR (CLEAR); BACTERIA, URINE AUTO NEGATIVE (NEGATIVE); BILIRUBIN, URINE AUTO NEGATIVE (NEGATIVE); BLOOD, URINE BLOOD NEGATIVE (NEGATIVE); COLOR, URINE YELLOW (YELLOW); GLUCOSE, URINE (UA) AUTO NEGATIVE (NEGATIVE); KETONE, URINE AUTO NEGATIVE (NEGATIVE); LEUKOCYTE ESTERASE, URINE AUTO NEGATIVE (NEGATIVE); MUCUS, URINE SMALL (NEGATIVE); NITRITE, URINE AUTO NEGATIVE (NEGATIVE); PROTEIN, URINE AUTO NEGATIVE (NEGATIVE); RBC, URINE AUTO 0 /HPF (0-3); SPECIFIC GRAVITY URINE AUTO 1.018 (1.002-1.035); SQUAMOUS EPITHELIAL CELL UR AU 0 /HPF (0-6); UROBILINOGEN, URINE AUTO 0.2 mg/dL (0.0-2.0); WBC, URINE AUTO 1 /HPF (0-3)
== END ==
LOC: M SMT 16:41
PROVIDERS: ATTEND Specialist
DX: Z01.818 Encounter for other preprocedural examination (principal)

== ENCOUNTER → 2024-04-12 | Outpatient (CLI) | payer OTHER ==
[~2024-04-12] MED LIST changes: +FERR325T81 PO; +MAGN200T PO; +PENT10CA PO; +TOPI1CAP10 PO; +VIBE75TA PO; +VITA100093 PO
== END ==
LOC: M EKG 14:31
PROVIDERS: ATTEND Nurse Practitioner Psychiatric/Mental Health
DX: F84.0 Autistic disorder (principal); Z79.899 Other long term (current) drug therapy

== ENCOUNTER → 2024-04-12 | Outpatient (CLI) | payer OTHER ==
[2024-04-12 15:36] LABS: HEMATOCRIT 45.7 % (36.0-47.0); HEMOGLOBIN 14.6 g/dl (12.0-15.5); MEAN CORPUSCULAR HEMOGLOBIN 27.1 pg (27.0-33.0); MEAN CORPUSCULAR HGB CONC 31.9 g/dl (32.0-36.5); MEAN CORPUSCULAR VOLUME 84.8 fl (80.0-96.0); PLATELET COUNT, AUTOMATED 283 10^3/uL (150-450); RED BLOOD COUNT 5.39 10^6/uL (4.00-5.40); WHITE BLOOD COUNT 9.4 10^3/uL (4.0-10.0)
[2024-04-12 16:01] LABS: BLOOD UREA NITROGEN 9 MG/DL (9-23); CALCIUM LEVEL 8.8 MG/DL (8.5-10.1); CARBON DIOXIDE LEVEL 25 MMOL/L (20-31); CHLORIDE LEVEL 111 MMOL/L (98-107); CREATININE FOR GFR 0.76 MG/DL (0.55-1.30); GLOMERULAR FILTRATION RATE > 60.0 (>60); GLUCOSE, FASTING 88 MG/DL (60-100); SODIUM LEVEL 140 MMOL/L (136-145)
== END ==
LOC: M LAB 14:37
PROVIDERS: ATTEND Specialist
DX: Z01.818 Encounter for other preprocedural examination (principal)

== ENCOUNTER 2024-04-19 06:06 | Day surgery (SDC) | payer OTHER ==
[~2024-04-19] VITALS: Ht 175.3 cm; Wt 172.1 kg
[2024-04-19] MEDS ORDERED: LR 1,000 ML IV SCH ×2 (06:20→09:00)
[2024-04-19] MEDS ORDERED: LIDOCAINE 1% SDV 5ML VIAL SC PRN (06:20)
[2024-04-19] MEDS ORDERED: dexmedeTOMIDine (4MCG/ML)200MCG/50ML BTL (PRECEDEX) As Ordered ONE (06:53)
[2024-04-19] MEDS ORDERED: ACETAMINOPHEN 1000MG 100ML IV BAG As Ordered ONE (06:53)
[2024-04-19] MEDS ORDERED: ONDANSETRON 4MG 2ML VIAL As Ordered ONE (06:58)
[2024-04-19] MEDS ORDERED: propofoL 200 MG/20 ML VIAL As Ordered ONE (06:58)
[2024-04-19] MEDS ORDERED: LIDOCAINE 2% 100MG/5ML SDV (FOR ANES.) As Ordered ONE (06:58)
[2024-04-19] MEDS ORDERED: MIDAZOLAM INJ 2MG/2ML VIAL As Ordered ONE (07:02)
[2024-04-19] MEDS ORDERED: fentaNYL 100 MCG/2 ML INJECTION As Ordered ONE (07:02)
[2024-04-19] MEDS ORDERED: GLYCOPYRROLATE INJ 0.2 MG/ML 2 ML VIAL As Ordered ONE (08:09)
[2024-04-19] MEDS: BOTOX THERAPEUTIC 100 UNIT VIAL As Ordered ONE (08:30)
[2024-04-19] MEDS: LIDOCAINE 1% MDV 50ML VIAL As Ordered ONE (08:30)
[2024-04-19] MEDS: LIDOCAINE 2% 5ML JELLY UROJET As Ordered ONE (08:30)
[2024-04-19] MEDS: TRIAMCINOLONE ACETONIDE SUSP 40MG/ML 1ML VIAL As Ordered ONE (08:30)
[2024-04-19] MEDS ORDERED: KETOROLAC 60MG 2ML VIAL As Ordered ONE (08:50)
[2024-04-19] MEDS ORDERED: MEPERIDINE 50 MG/ML 1ML VIAL As Ordered ONE (08:51)
[2024-04-19] MEDS ORDERED: ONDANSETRON 4MG 2ML VIAL IV PRN (09:00)
[2024-04-19] MEDS ORDERED: HYDROMORPHONE HCL 0.5 MG/ 0.5 ML SYRINGE IV PRN (09:00)
[2024-04-19] MEDS ORDERED: fentaNYL 100 MCG/2 ML INJECTION IV PRN (09:00)
[2024-04-19] MEDS: oxyCODONE 5MG TAB PO PRN (09:13)
[2024-04-19 09:50] VITALS: BP 135/85; TEMP 97.3; O2SAT 98
== END 2024-04-19 10:32 | disposition home or self-care (01) ==
LOC: M SDC 06:06
PROVIDERS: ATTEND Specialist
DX: N30.30 Trigonitis without hematuria (principal); N39.41 Urge incontinence; R35.0 Frequency of micturition; N39.44 Nocturnal enuresis; I10 Essential (primary) hypertension; E03.9 Hypothyroidism, unspecified; K58.9 Irritable bowel syndrome, unspecified; K21.9 Gastro-esophageal reflux disease without esophagitis; F84.0 Autistic disorder; Z79.899 Other long term (current) drug therapy; Z88.2 Allergy status to sulfonamides; Z88.1 Allergy status to other antibiotic agents; Z91.040 Latex allergy status; F17.290 Nicotine dependence, other tobacco product, uncomplicated; G43.909 Migraine, unspecified, not intractable, without status migrainosus
CPT/HCPCS: 52204; 52287; 53899; 81025; 88305; J0131; J0585; J1100; J1596; J1885; J2175; J2250; J2405; J3010; J3301

== ENCOUNTER → 2024-04-27 | Outpatient (REF) | payer OTHER ==
[~2024-04-27] MED LIST changes: +GABA-1635 PO; -GABA800T4 PO
[2024-04-27 22:50] LABS: APPEARANCE, URINE TURBID (CLEAR); BACTERIA, URINE AUTO NEGATIVE (NEGATIVE); BILIRUBIN, URINE AUTO NEGATIVE (NEGATIVE); BLOOD, URINE BLOOD 3+ (NEGATIVE); COLOR, URINE AMBER (YELLOW); GLUCOSE, URINE (UA) AUTO NEGATIVE (NEGATIVE); KETONE, URINE AUTO NEGATIVE (NEGATIVE); LEUKOCYTE ESTERASE, URINE AUTO 1+ (NEGATIVE); MUCUS, URINE SMALL (NEGATIVE); NITRITE, URINE AUTO NEGATIVE (NEGATIVE); PROTEIN, URINE AUTO 2+ mg/dL (NEGATIVE); RBC, URINE AUTO TNTC /HPF (0-3); SPECIFIC GRAVITY URINE AUTO 1.028 (1.002-1.035); SQUAMOUS EPITHELIAL CELL UR AU 7 /HPF (0-6); UROBILINOGEN, URINE AUTO 0.2 mg/dL (0.0-2.0); WBC, URINE AUTO TNTC /HPF (0-3)
== END ==
LOC: M LAB REF 17:45
PROVIDERS: ATTEND Physician Assistant
DX: N39.0 Urinary tract infection, site not specified (principal)

== ENCOUNTER → 2024-05-02 | Outpatient (REF) | payer OTHER ==
[~2024-05-02] MED LIST changes: +GABA-1172; +GABA-1172 PO; -GABA-282; -GABA-282 PO
[2024-05-05 10:46] LABS: HPV APTIMA Not Detected (Not Detected)
== END ==
LOC: M SFHCWAGY 15:22
PROVIDERS: ATTEND Specialist
DX: Z01.419 Encounter for gynecological examination (general) (routine) without abnormal findings (principal); Z20.2 Contact with and (suspected) exposure to infections with a predominantly sexual mode of transmission; Z77.9 Other contact with and (suspected) exposures hazardous to health

== ENCOUNTER → 2024-10-31 | Outpatient (REF) | payer OTHER ==
[2024-10-31 19:29] LABS: APPEARANCE, URINE HAZY (CLEAR); BACTERIA, URINE AUTO NEGATIVE (NEGATIVE); BILIRUBIN, URINE AUTO NEGATIVE (NEGATIVE); BLOOD, URINE BLOOD NEGATIVE (NEGATIVE); COLOR, URINE YELLOW (YELLOW); GLUCOSE, URINE (UA) AUTO NEGATIVE (NEGATIVE); KETONE, URINE AUTO NEGATIVE (NEGATIVE); LEUKOCYTE ESTERASE, URINE AUTO NEGATIVE (NEGATIVE); MUCUS, URINE SMALL (NEGATIVE); NITRITE, URINE AUTO NEGATIVE (NEGATIVE); PROTEIN, URINE AUTO NEGATIVE (NEGATIVE); RBC, URINE AUTO 0 /HPF (0-3); SPECIFIC GRAVITY URINE AUTO 1.026 (1.002-1.035); SQUAMOUS EPITHELIAL CELL UR AU 1 /HPF (0-6); UROBILINOGEN, URINE AUTO 0.2 mg/dL (0.0-2.0); WBC, URINE AUTO 1 /HPF (0-3)
== END ==
LOC: M SMT 17:06
PROVIDERS: ATTEND Specialist
DX: Z01.818 Encounter for other preprocedural examination (principal)

== ENCOUNTER → 2024-11-01 | Outpatient (CLI) | payer OTHER | LOC: M LAB 16:22 | PROVIDERS: ATTEND Specialist | DX: Z01.818 Encounter for other preprocedural examination (principal) ==

== ENCOUNTER → 2024-11-01 | Outpatient (CLI) | payer OTHER | LOC: M LAB 16:28 | PROVIDERS: ATTEND Family Medicine Addiction Medicine | DX: E06.3 Autoimmune thyroiditis (principal) ==

== ENCOUNTER → 2024-11-01 | Outpatient (CLI) | payer OTHER | LOC: M LAB 16:26 | PROVIDERS: ATTEND Nurse Practitioner Psychiatric/Mental Health | DX: F43.10 Post-traumatic stress disorder, unspecified (principal); Z79.899 Other long term (current) drug therapy ==

== ENCOUNTER → 2024-11-02 | Outpatient (CLI) | payer OTHER ==
[2024-11-02 12:56] LABS: BASO % 0.3 % (0.0-1.0); EOS # 0.1 10^3/uL (0.0-0.5); EOS % 1.4 % (0.0-3.0); HEMATOCRIT 43.5 % (36.0-47.0); HEMOGLOBIN 13.9 g/dl (12.0-15.5); LYMPH # 1.3 10^3/uL (1.5-5.0); LYMPH % 18.1 % (24.0-44.0); MEAN CORPUSCULAR HEMOGLOBIN 26.7 pg (27.0-33.0); MEAN CORPUSCULAR VOLUME 83.7 fl (80.0-96.0); MONO # 0.5 10^3/uL (0.0-0.8); MONO % 7.7 % (2.0-8.0); NEUTROPHILS # 5.1 10^3/uL (1.5-8.5); NEUTROPHILS % 72.1 % (36.0-66.0); PLATELET COUNT, AUTOMATED 219 10^3/uL (150-450)
[2024-11-02 13:00] LABS: ERYTHROCYTE SEDIMENTATION RATE 35 mm/hr (0-20)
[2024-11-02 13:17] LABS: HEMOGLOBIN A1c 4.9 % (4.0-6.0)
[2024-11-02 13:28] LABS: ALBUMIN 3.3 G/DL (3.2-5.2); ALKALINE PHOSPHATASE 85 U/L (35-104); ALT/SGPT 32 U/L (7.0-40); AST/SGOT 20 U/L (<34); BILIRUBIN,TOTAL 0.4 MG/DL (0.3-1.2); BLOOD UREA NITROGEN 12 MG/DL (9-23); CALCIUM LEVEL 8.4 MG/DL (8.5-10.1); CARBON DIOXIDE LEVEL 26 MMOL/L (20-31); CHLORIDE LEVEL 108 MMOL/L (98-107); CHOLESTEROL LEVEL 111 MG/DL (<200); CHOLESTEROL RISK RATIO 2.15 (<5); CREATININE FOR GFR 0.71 MG/DL (0.55-1.30); GLOMERULAR FILTRATION RATE > 60.0 (>60); GLUCOSE, FASTING 91 MG/DL (60-100); HDL CHOLESTEROL 51.4 MG/DL (>40); LDL CHOLESTEROL 38.2 MG/DL (<100); MAGNESIUM LEVEL 1.8 MG/DL (1.8-2.4); NON-HDL-C 59.6 MG/DL; POTASSIUM SERUM 3.9 MMOL/L (3.5-5.1); SODIUM LEVEL 141 MMOL/L (136-145); TOTAL PROTEIN 6.5 G/DL (5.7-8.2); TRIGLYCERIDES LEVEL 107 MG/DL (<150)
[2024-11-02 13:29] LABS: FERRITIN 48.4 NG/ML (7.3-270.7); FREE T4 0.96 NG/DL (0.89-1.76); THYROID STIMULATING HORMONE 2.089 uIU/ML (0.55-4.78)
[2024-11-02 13:30] LABS: TOTAL 25(OH) VITAMIN D 65.6 NG/ML (20.0-100.0); VITAMIN B12 LEVEL 359 PG/ML (211-911)
== END ==
LOC: M LAB 12:22
PROVIDERS: ATTEND Specialist
DX: Z01.818 Encounter for other preprocedural examination (principal)

== ENCOUNTER 2024-11-08 09:05 | Day surgery (SDC) | payer OTHER ==
[~2024-11-08] VITALS: Ht 175.3 cm; Wt 169.3 kg
[2024-11-08] MEDS ORDERED: LR 1,000 ML IV SCH ×2 (09:25→12:05)
[2024-11-08] MEDS ORDERED: ONDANSETRON 4MG 2ML VIAL As Ordered ONE (10:07)
[2024-11-08] MEDS ORDERED: LIDOCAINE 2% INJ 100 MG/5 ML SYRINGE As Ordered ONE (10:07)
[2024-11-08] MEDS ORDERED: propofoL 200 MG/20 ML VIAL As Ordered ONE (10:07)
[2024-11-08] MEDS ORDERED: MIDAZOLAM INJ 2MG/2ML VIAL As Ordered ONE (10:08)
[2024-11-08] MEDS ORDERED: fentaNYL 100 MCG/2 ML INJECTION As Ordered ONE (10:08)
[2024-11-08] MEDS: TRIAMCINOLONE ACETONIDE SUSP 40MG/ML 1ML VIAL As Ordered ONE (10:56)
[2024-11-08] MEDS: ceFAZolin SOD 3 GM in DEXTROSE 5% (D5W) MINI-BAG PLU 1... IV ONE (11:18)
[2024-11-08] MEDS ORDERED: SUCCINYLCHOLINE 100MG/5ML SYRINGE As Ordered ONE (11:39)
[2024-11-08] MEDS: BOTOX THERAPEUTIC 100 UNIT VIAL As Ordered ONE (11:45)
[2024-11-08] MEDS: LIDOCAINE 2% MDV 20ML VIAL As Ordered ONE (11:50)
[2024-11-08] MEDS ORDERED: fentaNYL 100 MCG/2 ML INJECTION IV PRN (12:05)
[2024-11-08] MEDS ORDERED: HYDROMORPHONE HCL 0.5 MG/ 0.5 ML SYRINGE IV PRN (12:05)
[2024-11-08] MEDS: oxyCODONE 5MG TAB PO PRN (12:50)
[2024-11-08] MEDS: ONDANSETRON 4MG 2ML VIAL IV PRN (13:15)
[2024-11-08 14:06] VITALS: BP 133/84; TEMP 97.7; O2SAT 96
== END 2024-11-08 14:22 | disposition home or self-care (01) ==
LOC: M SDC 09:05
PROVIDERS: ATTEND Specialist
DX: N30.10 Interstitial cystitis (chronic) without hematuria (principal); N39.41 Urge incontinence; N32.81 Overactive bladder; K58.9 Irritable bowel syndrome, unspecified; E06.3 Autoimmune thyroiditis; J45.909 Unspecified asthma, uncomplicated; F84.0 Autistic disorder; Z79.899 Other long term (current) drug therapy; Z88.2 Allergy status to sulfonamides; Z88.1 Allergy status to other antibiotic agents; Z91.048 Other nonmedicinal substance allergy status; Z90.89 Acquired absence of other organs; F41.9 Anxiety disorder, unspecified; F32.A Depression, unspecified; E28.2 Polycystic ovarian syndrome
CPT/HCPCS: 52260; 52287; 81025; 93005; J0330; J0585; J0690; J1100; J2250; J2405; J3010

== ENCOUNTER → 2024-11-15 | Outpatient (CLI) | payer OTHER ==
[2024-11-16 11:03] LABS: DEHYDROEPIANDROSTERONE SULFATE 389 mcg/dL (14-349)
[2024-11-17 10:37] LABS: ANA SCREEN, IFA NEGATIVE (NEGATIVE)
== END ==
LOC: M LAB 14:15
PROVIDERS: ATTEND Physician Assistant
DX: L65.0 Telogen effluvium (principal)

== ENCOUNTER → 2024-12-05 | Outpatient (CLI) | payer OTHER | LOC: M EKG 14:59 | PROVIDERS: ATTEND Registered Nurse | DX: R00.2 Palpitations (principal); Z53.9 Procedure and treatment not carried out, unspecified reason ==

== ENCOUNTER → 2025-01-04 | Outpatient (REF) | payer OTHER ==
[~2025-01-04] MED LIST changes: -NYST-13 EXT; +NYST0.1C EXT
[2025-01-04 18:04] LABS: URINE PREG TEST NEGATIVE (NEGATIVE)
[2025-01-04 18:36] LABS: APPEARANCE, URINE CLOUDY (CLEAR); BACTERIA, URINE AUTO NEGATIVE (NEGATIVE); BILIRUBIN, URINE AUTO NEGATIVE (NEGATIVE); BLOOD, URINE BLOOD NEGATIVE (NEGATIVE); COLOR, URINE YELLOW (YELLOW); GLUCOSE, URINE (UA) AUTO NEGATIVE (NEGATIVE); KETONE, URINE AUTO NEGATIVE (NEGATIVE); LEUKOCYTE ESTERASE, URINE AUTO NEGATIVE (NEGATIVE); MUCUS, URINE SMALL (NEGATIVE); NITRITE, URINE AUTO NEGATIVE (NEGATIVE); PROTEIN, URINE AUTO NEGATIVE (NEGATIVE); RBC, URINE AUTO 1 /HPF (0-3); SPECIFIC GRAVITY URINE AUTO 1.026 (1.002-1.035); SQUAMOUS EPITHELIAL CELL UR AU 16 /HPF (0-6); UROBILINOGEN, URINE AUTO 0.2 mg/dL (0.0-2.0); WBC, URINE AUTO 2 /HPF (0-3)
== END ==
LOC: M LAB REF 17:41
PROVIDERS: ATTEND Physician Assistant
DX: N39.0 Urinary tract infection, site not specified (principal); N91.2 Amenorrhea, unspecified

== ENCOUNTER → 2025-03-24 | Outpatient (REF) | payer OTHER ==
[~2025-03-24] MED LIST changes: +GNPTAB36 PO; -PROZ20CA11 PO; +PROZ20CA12 PO; +ROZE8TAB16 PO
[2025-03-24 17:35] LABS: APPEARANCE, URINE HAZY (CLEAR); BACTERIA, URINE AUTO NEGATIVE (NEGATIVE); BILIRUBIN, URINE AUTO NEGATIVE (NEGATIVE); BLOOD, URINE BLOOD NEGATIVE (NEGATIVE); GLUCOSE, URINE (UA) AUTO NEGATIVE (NEGATIVE); KETONE, URINE AUTO NEGATIVE (NEGATIVE); LEUKOCYTE ESTERASE, URINE AUTO NEGATIVE (NEGATIVE); MUCUS, URINE SMALL (NEGATIVE); NITRITE, URINE AUTO NEGATIVE (NEGATIVE); PROTEIN, URINE AUTO NEGATIVE (NEGATIVE); RBC, URINE AUTO 1 /HPF (0-3); SPECIFIC GRAVITY URINE AUTO 1.025 (1.002-1.035); SQUAMOUS EPITHELIAL CELL UR AU 8 /HPF (0-6); UROBILINOGEN, URINE AUTO 0.2 mg/dL (0.0-2.0); WBC, URINE AUTO 3 /HPF (0-3)
== END ==
LOC: M SMT 16:44
PROVIDERS: ATTEND Nurse Practitioner Family
DX: Z01.818 Encounter for other preprocedural examination (principal)

== ENCOUNTER → 2025-03-29 | Outpatient (CLI) | payer OTHER ==
[2025-03-29 15:16] LABS: PLATELET COUNT, AUTOMATED 252 10^3/uL (150-450)
[2025-03-29 15:49] LABS: CALCIUM LEVEL 8.6 MG/DL (8.5-10.1); CARBON DIOXIDE LEVEL 27 MMOL/L (20-31); CHLORIDE LEVEL 109 MMOL/L (98-107); CREATININE FOR GFR 0.76 MG/DL (0.55-1.30); GLOMERULAR FILTRATION RATE > 90.0 (>60); POTASSIUM SERUM 3.7 MMOL/L (3.5-5.1); SODIUM LEVEL 145 MMOL/L (136-145)
== END ==
LOC: M LAB 14:40
PROVIDERS: ATTEND Nurse Practitioner Family
DX: Z01.818 Encounter for other preprocedural examination (principal)

== ENCOUNTER → 2025-04-27 | Outpatient (REF) | payer OTHER ==
[~2025-04-27] MED LIST changes: -IBUP-1022 PO; +IBUP600T42 PO
[2025-04-27 15:43] LABS: APPEARANCE, URINE CLEAR (CLEAR); BACTERIA, URINE AUTO NEGATIVE (NEGATIVE); BILIRUBIN, URINE AUTO NEGATIVE (NEGATIVE); BLOOD, URINE BLOOD NEGATIVE (NEGATIVE); GLUCOSE, URINE (UA) AUTO NEGATIVE (NEGATIVE); KETONE, URINE AUTO NEGATIVE (NEGATIVE); LEUKOCYTE ESTERASE, URINE AUTO NEGATIVE (NEGATIVE); NITRITE, URINE AUTO NEGATIVE (NEGATIVE); PROTEIN, URINE AUTO NEGATIVE (NEGATIVE); RBC, URINE AUTO 0 /HPF (0-3); SPECIFIC GRAVITY URINE AUTO 1.019 (1.002-1.035); SQUAMOUS EPITHELIAL CELL UR AU 0 /HPF (0-6); UROBILINOGEN, URINE AUTO 0.2 mg/dL (0.0-2.0); WBC, URINE AUTO 0 /HPF (0-3)
== END ==
LOC: M SMT 15:01
PROVIDERS: ATTEND Nurse Practitioner Family
DX: Z01.818 Encounter for other preprocedural examination (principal)

== ENCOUNTER 2025-05-03 10:54 | Day surgery (SDC) | payer OTHER ==
[2025-04-05] MEDS: ceFAZolin SOD 3 GM in DEXTROSE 5% (D5W) MINI-BAG PLU 1... IV ONE (11:03)
[~2025-05-03] VITALS: Ht 175.3 cm; Wt 176.9 kg
[2025-05-03] MEDS: ceFAZolin SOD 3 GM in DEXTROSE 5% (D5W) MINI-BAG PLU 1... IV ONE (06:00)
[~2025-05-03 10:54] MED LIST changes: +LIDOCAINE 2% 100 MG/5 ML SDV (FOR ANES.) As Ordered ONE; +LR 1,000 ML IV SCH; +MIDAZOLAM INJ 2 MG/2 ML VIAL As Ordered ONE; +ceFAZolin SOD 2 GM IV ONCE IV ONE
[2025-05-03] MEDS ORDERED: dexmedeTOMIDine (4 MCG/ML) 200 MCG/50 ML BTL As Ordered ONE (11:01)
[2025-05-03] MEDS ORDERED: KETAMINE HCL 200 MG/20 ML VIAL As Ordered ONE (11:05)
[2025-05-03] MEDS: LIDOCAINE 2% 5 ML JELLY UROJET As Ordered ONE (11:12)
[2025-05-03] MEDS: BOTOX THERAPEUTIC 100 UNIT VIAL As Ordered ONE (11:12)
[2025-05-03 11:50] VITALS: BP 121/82; TEMP 97.4; O2SAT 97
== END 2025-05-03 11:50 | disposition home or self-care (01) ==
LOC: M SDC 10:54
PROVIDERS: ATTEND Urology
DX: N30.10 Interstitial cystitis (chronic) without hematuria (principal); N39.41 Urge incontinence; J45.909 Unspecified asthma, uncomplicated; E03.9 Hypothyroidism, unspecified; E28.2 Polycystic ovarian syndrome; K58.9 Irritable bowel syndrome, unspecified; K21.9 Gastro-esophageal reflux disease without esophagitis; Z79.899 Other long term (current) drug therapy; F43.10 Post-traumatic stress disorder, unspecified; F17.290 Nicotine dependence, other tobacco product, uncomplicated; Z88.2 Allergy status to sulfonamides; Z88.1 Allergy status to other antibiotic agents; Z91.040 Latex allergy status; Z91.048 Other nonmedicinal substance allergy status; Z87.440 Personal history of urinary (tract) infections
CPT/HCPCS: 52260; 52287; 81025; J0585; J0688; J2250; J3010

== ENCOUNTER → 2025-05-16 | Outpatient (CLI) | payer OTHER ==
[~2025-05-16] MED LIST changes: -LIDOCAINE 2% 100 MG/5 ML SDV (FOR ANES.) As Ordered ONE; -LR 1,000 ML IV SCH; -MIDAZOLAM INJ 2 MG/2 ML VIAL As Ordered ONE; -ceFAZolin SOD 2 GM IV ONCE IV ONE
[2025-05-16 18:01] LABS: BASO # 0.1 10^3/uL (0.0-0.2); BASO % 0.6 % (0.0-1.0); EOS # 0.2 10^3/uL (0.0-0.5); EOS % 1.5 % (0.0-3.0); LYMPH # 2.5 10^3/uL (1.5-5.0); LYMPH % 23.1 % (24.0-44.0); MONO # 0.6 10^3/uL (0.0-0.8); MONO % 5.0 % (2.0-8.0); NEUTROPHILS # 7.5 10^3/uL (1.5-8.5); NEUTROPHILS % 68.9 % (36.0-66.0); PLATELET COUNT, AUTOMATED 312 10^3/uL (150-450)
[2025-05-16 18:24] LABS: ESTIMATED AVERAGE GLUCOSE 103.0 MG/DL (60-110)
[2025-05-16 18:35] LABS: ERYTHROCYTE SEDIMENTATION RATE 49 mm/hr (0-20)
[2025-05-16 19:12] LABS: FREE T4 1.15 NG/DL (0.89-1.76); TOTAL 25(OH) VITAMIN D 64.3 NG/ML (20.0-100.0)
[2025-05-16 19:14] LABS: C REACTIVE PROTEIN QUANTITATIV 1.95 MG/DL (<1.0)
[2025-05-16 19:20] LABS: ALT/SGPT 23 U/L (7.0-40); AST/SGOT 16 U/L (<34); CALCIUM LEVEL 8.9 MG/DL (8.5-10.1); CARBON DIOXIDE LEVEL 27 MMOL/L (20-31); CHLORIDE LEVEL 106 MMOL/L (98-107); CHOLESTEROL LEVEL 121 MG/DL (<200); CHOLESTEROL RISK RATIO 2.23 (<5); CREATININE FOR GFR 0.67 MG/DL (0.55-1.30); GLOMERULAR FILTRATION RATE > 90.0 (>60); IRON (FE) 42 UG/DL (50-170); LDL CHOLESTEROL 47.2 MG/DL (<100); MAGNESIUM LEVEL 1.8 MG/DL (1.8-2.4); NON-HDL-C 66.8 MG/DL; POTASSIUM SERUM 4.0 MMOL/L (3.5-5.1); SODIUM LEVEL 141 MMOL/L (136-145); TRIGLYCERIDES LEVEL 98 MG/DL (<150)
== END ==
LOC: M LAB 15:38
PROVIDERS: ATTEND Nurse Practitioner Psychiatric/Mental Health
DX: Z79.899 Other long term (current) drug therapy (principal)

== ENCOUNTER → 2025-08-10 | Outpatient (CLI) | payer OTHER ==
[~2025-08-10] MED LIST changes: -PROZ20CA12 PO; +PROZ20CA25 PO; -VALE500C2 PO; +[UNRECOGNIZED DRUG - CODE] PO
[2025-08-10 17:54] LABS: BASO # 0.1 10^3/uL (0.0-0.2); BASO % 0.4 % (0.0-1.0); EOS # 0.2 10^3/uL (0.0-0.5); EOS % 1.9 % (0.0-3.0); LYMPH # 2.6 10^3/uL (1.5-5.0); LYMPH % 23.2 % (24.0-44.0); MONO # 0.6 10^3/uL (0.0-0.8); MONO % 5.5 % (2.0-8.0); NEUTROPHILS # 7.7 10^3/uL (1.5-8.5); NEUTROPHILS % 68.4 % (36.0-66.0); PLATELET COUNT, AUTOMATED 290 10^3/uL (150-450)
[2025-08-10 18:30] LABS: ALT/SGPT 26 U/L (7.0-40); AST/SGOT 22 U/L (<34); CALCIUM LEVEL 8.4 MG/DL (8.5-10.1); CARBON DIOXIDE LEVEL 29 MMOL/L (20-31); CHLORIDE LEVEL 104 MMOL/L (98-107); CREATININE FOR GFR 0.66 MG/DL (0.55-1.30); GLOMERULAR FILTRATION RATE > 90.0 (>60); POTASSIUM SERUM 4.3 MMOL/L (3.5-5.1); SODIUM LEVEL 142 MMOL/L (136-145)
[2025-08-10 18:32] LABS: RHEUMATOID FACTOR QUANT 8.3 IU/ML (<14)
[2025-08-10 18:34] LABS: THYROID PEROXIDASE ANTIBODY 74 U/ML (<60.0); THYROXINE (T4) 10.2 UG/DL (4.5-10.9); TOTAL T3 158.6 NG/DL (60.0-181.0)
[2025-08-10 18:35] LABS: IMMUNOGLOBULIN E 166.7 IU/ML (0-378)
[2025-08-14 17:42] LABS: THRYOGLOBULIN ANTIBODIES (ATA) 1 IU/mL (< or = 1)
[2025-08-16 04:12] LABS: M007-IGE BOTRYTIS cinerea < 0.10 kU/L (<0.10)
[2025-08-16 07:33] LABS: D002-IGE D FARINAE MITE 3.42 kU/L (<0.10); E001-IGE CAT EPITHELIUM/DANDER 5.96 kU/L (<0.10); E005-IGE DOG DANDER/HAIR/EPITH 6.18 kU/L (<0.10); G002-IGE BERMUDA GRASS < 0.10 kU/L (<0.10); G003-IGE ORCHARD GRASS < 0.10 kU/L (<0.10); G006-IGE TIMOTHY GRASS < 0.10 kU/L (<0.10); M001-IGE PENICILLIUM CHRYSOGEN < 0.10 kU/L (<0.10); M003-IGE D pteronyssinus 4.50 kU/L (<0.10); STEMP BOTRYOSUM IGE < 0.10 kU/L (<0.10); T001-IGE MAPLE/BOX ELDER 0.28 kU/L (<0.10); T003-IGE COMMON SILVER BIRCH 0.27 kU/L (<0.10); T008-IGE ELM, AMERICAN WHITE < 0.10 kU/L (<0.10); T014-IGE COTTONWOOD 0.35 kU/L (<0.10); T016-IGE PINE, WHITE < 0.10 kU/L (<0.10); W003-IGE RAGWEED, GIANT < 0.10 kU/L (<0.10); W006-IGE MUGWORT < 0.10 kU/L (<0.10); W009-IGE PLANTAIN,ENGLISH 0.66 kU/L (<0.10); W010-IGE LAMB'S QUARTER < 0.10 kU/L (<0.10); W012-IGE GOLDENROD < 0.10 kU/L (<0.10); W013-IgE COCKLEBUR IGE < 0.10 kU/L (<0.10)
[2025-08-16 16:07] LABS: TRYPTASE 6.7 mcg/L (<11.0)
[2025-08-18 15:16] LABS: THYROGLOBULIN QUANTITATIVE 5.1 ng/mL
== END ==
LOC: M LAB 13:56
PROVIDERS: ATTEND Allergy & Immunology Allergy
DX: J30.89 Other allergic rhinitis (principal); L50.1 Idiopathic urticaria